=== PATIENT | male | born 1960 | race Caucasian/White ===

== ENCOUNTER → 2024-10-01 | Outpatient (CLI) | payer MEDICARE, SELFPAY ==
--- NOTE | 2024-10-01 14:30 | XR_ITS ---
Examination: CT chest, without intravenous contrast. Sagittal and coronal 2-D reconstructions. Exam date and time: October 01, 2024 1449 hours INDICATIONS: CT chest May 16, 2024 2 mm pulmonary nodule posterior left lung, diagnosis esophageal carcinoma CTDI:vol (mGy) 10.7 DLP: (mGycm) 130 Technique: Multiple 3.0 mm axial sections of the chest to been obtained. Bone and lung density settings are obtained. Sagittal and coronal 2-D reconstructions have been obtained. Low dose protocols were performed. One or more of the following dose reduction techniques were used; automated exposure control, adjustment of the mA and/or KV according to patient size, use of iterative reconstruction technique. Findings: Partial visualization axillary stents Thoracic aortic calcification no aneurysmal dilatation Pulmonary artery segments are not enlarged Stable 2 mm pulmonary nodule posterior left lung No new pulmonary nodules No pneumonia or pulmonary edema No visualized liver or splenic lesion Absent gallbladder Kidneys partially visualized, atrophic right kidney no hydronephrosis No pancreatic mass IMPRESSION: Stable 2 mm pulmonary nodule posterior left lung
== END | disposition home or self-care (01) ==
PROVIDERS: PCP Family Medicine; Referring Provider Registered Nurse; Visit Provider Registered Nurse
DX: R91.1 Solitary pulmonary nodule (principal)
CPT/HCPCS: 71250

== ENCOUNTER → 2024-10-23 | Outpatient (CLI) | payer MEDICARE, SELFPAY ==
[2024-10-23 10:35] LABS: Anion Gap 7 (7-16); BUN/Creatinine Ratio 22 Ratio (12-20); Blood Urea Nitrogen 24 mg/dL (9-23); Calcium 9.4 mg/dL (8.3-10.6); Carbon Dioxide 26.5 mMol/L (20.0-31.0); Cardiac Risk Estimate 4.3 RATIO (4.0-6.7); Chloride 106 mMol/L (98-107); Cholesterol 146 mg/dL (132-200); Creatinine (Component) 1.1 mg/dL (0.6-1.3); Glucose 106 mg/dL (74-106); HDL Cholesterol 34 mg/dL (40-60); LDL Cholesterol,Calculated 92 mg/dL (0-130); Osmolality,Calculated 281 (275-295); Potassium 4.5 mMol/L (3.4-5.1); Sodium 139 mMol/L (136-145); Triglycerides 98 mg/dL (30-150); eGFR > 60 See Note
== END | disposition home or self-care (01) ==
LOC: COPL 09:13
PROVIDERS: PCP Registered Nurse; Referring Provider Internal Medicine Cardiovascular Disease; Visit Provider Internal Medicine Cardiovascular Disease
DX: I25.118 Atherosclerotic heart disease of native coronary artery with other forms of angina pectoris (principal); N18.31 Chronic kidney disease, stage 3a
CPT/HCPCS: 36415; 80048; 80061

== ENCOUNTER → 2024-10-30 | Outpatient (CLI) | payer MEDICARE, SELFPAY ==
--- NOTE | 2024-10-30 09:52 | XR_ITS ---
Examination: Abdomen AP single view Technique: AP portable supine abdomen, single view Exam date and time: October 30, 2024, 0858 hrs. Indications: Left-sided flank pain beginning one week ago. Findings: Surgical clips upper right abdomen. No renal or ureteral calculi. Moderate stool throughout the colon Impression: No renal or ureteral calculi.
== END | disposition home or self-care (01) ==
LOC: CDIM 09:41
PROVIDERS: PCP Family Medicine; Referring Provider Family Medicine; Visit Provider Family Medicine
DX: R19.7 Diarrhea, unspecified (principal)
CPT/HCPCS: 74018

== ENCOUNTER → 2024-11-03 | Outpatient (CLI) | payer MEDICARE, SELFPAY ==
--- NOTE | 2024-11-03 13:01 | XR_ITS ---
Examination: Abdomen AP single view Technique: AP portable supine abdomen, single view Exam date and time: November 03, 2024 at 1344 hours INDICATIONS: Abdominal pain beginning one week ago. FINDINGS: Mild small bowel ileus Moderate air and stool throughout the colon No obstruction No free air Surgical clips upper right abdomen IMPRESSION: Mild small bowel ileus
== END | disposition home or self-care (01) ==
PROVIDERS: PCP Registered Nurse; Referring Provider Registered Nurse; Visit Provider Registered Nurse
DX: K56.7 Ileus, unspecified (principal)
CPT/HCPCS: 74018

== ENCOUNTER 2024-11-04 13:04 | Emergency (ER) | payer MEDICARE, SELFPAY ==
[2024-11-04 13:33] VITALS: BP 156/70; PULSE 75; RESP 16; TEMP 37; O2SAT 97; BMI 20.8
--- NOTE | 2024-11-04 13:35 | PD.EDRME ---
Rapid Medical Screening Exam RME Arrival date/time: 11/04/24 13:04 63 yo m present to ED for c/o of constipation/abd pain for 2 weeks I have greeted and performed a focused initial assessment of this patient. A comprehensive ED assessment and evaluation of the patient, analysis of all test results, and completion of the medical decision making process will be conducted by additional ED providers. Chief Complaint: General Adult/Misc Complain Time Seen by Provider: 11/04/24 13:24 Vital signs: Vital Signs Temperature 98.6 F 11/04/24 13:33 Pulse Rate 75 11/04/24 13:33 Respiratory Rate 16 11/04/24 13:33 Blood Pressure 156/70 H 11/04/24 13:33 Pulse Oximetry (%) 97 11/04/24 13:33 Oxygen Delivery Method Room Air 11/04/24 13:33
--- NOTE | 2024-11-04 13:38 | XR_ITS ---
Examination: CT abdomen with intravenous contrast CT pelvis with intravenous contrast 2-D coronal reconstructions 2-D sagittal reconstructions Date and time of exam:November 04, 20244 hrs. Indications: Abdominal pain constipation beginning 3 days ago. Comparison: July 17, 2023. CTDI: vol (mGy) 6.05 DLP: (mGycm) 334 Technique: Multiple axial sections of the abdomen and pelvis have been obtained. 64 slice high-resolution scanner used. 3 mm axial sections have been obtained, post intravenous injection 30 cc [id number] 2-D sagittal, coronal reconstructions obtained. Low dose protocols were performed. One or more of the following dose reduction techniques were used; automated exposure control, adjustment of the mA and/or KV according to patient size, use of iterative reconstruction technique. Findings: No focal liver or splenic lesions Absent gallbladder No extrahepatic biliary tract dilatation No pancreatic or adrenal mass Celiac superior mesenteric artery stents Opacification of the stents is difficult to assess given the low contrast administered Abdominal aortic calcification no aneurysmal dilatation Normal appendix Atrophic right kidney, right renal artery stent which appears opacified Wall thickening, mild involving the left pelvicalyceal system and proximal left ureter suspicious for urinary tract infection No hydronephrosis No bowel obstruction Colonic diverticulosis Right lateral chest wall abdominal wall stent, likely axillary stent which is opacified and extends to the common femoral arteries bilaterally Contracted urinary bladder No bowel obstruction Significant osteopenia Moderate disc narrowing L5-S1 Impression: Absent gallbladder No CT findings of bowel obstruction appendicitis or diverticulitis Suspicious for left urinary tract infection
[2024-11-04 14:10] LABS: Basophils % (Auto) 0 % (0-2.5); Eosinophils # (Auto) 0.2 Thou/mm3 (0.0-0.5); Eosinophils % (Auto) 2 % (0-10); Hematocrit 41.6 % (41.0-53.0); Hemoglobin 14.4 g/dL (13.5-16.0); Immature Granulocytes % (Auto) 0 % (0-0); Immature Granulocytes Auto 0.02 Thou/mm3 (0.00-0.00); Lymphocytes # (Auto) 2.5 Thou/mm3 (1.0-4.8); Lymphocytes % (Auto) 27 % (10-50); Mean Corpuscular HGB Conc 34.6 g/dl (31.0-37.0); Mean Corpuscular Hemoglobin 28.5 pg (25.0-35.0); Mean Corpuscular Volume 82 fL (80-100); Monocytes # (Auto) 0.8 Thou/mm3 (0.0-0.8); Monocytes % (Auto) 9 % (0-12); Neutrophils # (Auto) 5.7 Thou/mm3 (1.8-7.7); Neutrophils % (Auto) 61 % (37-80); Nucleated Red Blood Cell % 0 /100 WBC (0); Platelet Count 179 Thou/mm3 (140-440); RDW Standard Deviation 42.8 fL (35.1-43.9); Red Blood Count 5.05 Miln/mm3 (4.50-5.90); White Blood Count 9.2 Thou/mm3 (3.8-10.6)
[2024-11-04 14:32] LABS: Alanine Aminotransferase 18 U/L (10-49); Albumin, Serum 4.6 gm/dL (3.4-4.8); Albumin/Globulin Ratio 1.8 (1.2-2.2); Alkaline Phosphatase 97 U/L (46-116); Anion Gap 11 (7-16); Aspartate Amino Transferase 19 U/L (0-34); BUN/Creatinine Ratio 16 Ratio (12-20); Bilirubin,Total 0.7 mg/dL (0.3-1.2); Blood Urea Nitrogen 24 mg/dL (9-23); Calcium 9.3 mg/dL (8.3-10.6); Calcium (Corrected) 9.3 mg/dL (8.5-10.1); Carbon Dioxide 25.2 mMol/L (20.0-31.0); Chloride 99 mMol/L (98-107); Creatinine (Component) 1.5 mg/dL (0.6-1.3); Estimated Creatinine Clearance 45.8 mL/min (>60); Globulin 2.6 gm/dL (2.3-3.5); Glucose 120 mg/dL (74-106); Lipase 46 U/L (12-53); Magnesium 2.3 mg/dL (1.6-2.6); Osmolality,Calculated 275 (275-295); Potassium 4.3 mMol/L (3.4-5.1); Sodium 135 mMol/L (136-145); Total Protein 7.2 gm/dL (5.7-8.2); eGFR 51 See Note
[2024-11-04] MEDS: SODIUM CHLORIDE 0.9% 1000 ML 1,000 ML 999 ML IV (20:36)
--- NOTE | 2024-11-04 21:42 | EDNOTE_ITS ---
ED General RME/HPI General Chief complaint: General Adult/Misc Complain Stated complaint: MILD BOWEL ILEUS , DEHYDRATED, MOD STOOL IN COLON Time Seen by Provider: 11/04/24 13:24 Arrival date/time: 11/04/24 13:04 RME / HPI RME / HPI narrative: 11/04/24 13:04 63 yo m present to ED for c/o of constipation/abd pain for 2 weeks I have greeted and performed a focused initial assessment of this patient. A comprehensive ED assessment and evaluation of the patient, analysis of all test results, and completion of the medical decision making process will be conducted by additional ED providers. -------- Dr. Hartman?s Main ED Evaluation: 63yo male with a history of colon resection, CKD, HTN, fundoplication presents to the ED for a chief complaint of constipation. Patient states he had an outpatient abdominal x-ray on , which came back unremarkable. He started having diffuse abdominal pain over the last 2-3 days and had a repeat x-ray yesterday, which showed a mild ileus. He states he was concerned due to using stool softeners and enemas and continuing to not have any formed bowel movements, so he came in for evaluation. He states he has been having watery episodes of diarrhea and is passing gas. He denies any N/V, fever, chills or neelima other associated symptoms. Related Data Home Medications ?Medication ?Instructions ?Recorded ?Confirmed ticagrelor 90 mg tablet (Brilinta) 90 mg PO BID 05/10/22 tamsulosin 0.4 mg capsule 0.4 mg PO QHS 07/21/2105/10 Allergies Allergy/AdvReac Type Severity Reaction Status Date / Time meperidine Allergy Mild SEIZURE Verified 11/04/24 13:09 codeine Allergy Unknown SEIZURE Verified 11/04/24 13:09 methocarbamol Allergy Unknown SEIZURE Verified 11/04/24 13:09 midazolam Allergy Seizure Verified 11/04/24 13:09 Review of Systems Review of Systems Systems Reviewed: All systems reviewed, normal except as documented Past Medical History Past Medical History NEUROLOGIC: Positive Neurological Disorders and Seizures CARDIAC: Positive Coronary Artery Disease, Hypercholesterolemia and Hypertension; Negative Cardiac Disorders or Congestive Heart Failure RESPIRATORY: Negative Chronic Obstructive Pulmonary Disease (COPD) or Asthma GASTROINTESTINAL: Positive Gastrointestinal Disorders, Diverticulosis, Ulcer and Gastroesophageal Reflux Disease GENITOURINARY: Positive Genitourinary Disorders and Renal Disease MUSCULOSKELETAL: Positive Musculoskeletal Disorders and Degenerative Disk Disease ENDOCRINE: Negative Endocrine Disorders, Diabetes Mellitus Type 1, Diabetes Mellitus Type 2 or Hypothyroidism HEMATOLOGIC: Negative Blood Disorders, Anemia or Sickle Cell Disease OTHER HISTORY: Negative Blood Transfusions or Anesthesia Reactions Family History FAMILY HISTORY: Positive Family Cardiac Disorders and Family Cancer Surgical History SURGICAL: Positive Cardiac Surgery, Coronary Stent, Angiogram and Abdominal Surgery Social History SMOKING STATUS: Former smoker SUBSTANCE USE: does not use OCCUPATION: Retired sales and business development manager ED Exam Narrative Physical exam: GENERAL APPEARANCE: alert and oriented x 4, well-developed, well-nourished, no acute distress VITALS: All vitals were reviewed and the pulse ox is 97% on room air, which is normal according to my interpretation. HEENT: Normocephalic, atraumatic; pupils equal, round, reactive to light; EOMI; mucous membranes pink, moist; oropharynx clear NECK: Supple LUNGS: CTABL; no wheezes, no rales, no rhonchi HEART: Regular rate, regular rhythm; normal S1, S2; no murmurs ABDOMEN: non distended; normal BS; soft, no tenderness, no guarding, no rebound; no masses, no organomegaly, no hernia BACK: no CVA tenderness EXTREMITIES: atraumatic; no edema NEUROLOGIC: awake; alert and oriented x4; cranial nerves II-XII grossly intact; no focal sensory or motor deficits PSYCHIATRIC: appropriate mood and affect SKIN: warm, dry, normal color; no rashes Course Quality Measures none Orders Category Date Time Status CT Screening NOW Care 11/04/24 13:38 Active IV [Insert IV] STAT Care 11/04/24 13:[address] abdomen pelvis w con Stat Exams 11/04/24 13:38 Completed CBC Stat Lab 11/04/24 13:47 Completed CMP [Comprehensive Metabolic Panel] Stat Lab 11/04/24 13:47 Completed Lipase Stat Lab 11/04/24 13:47 Completed Mag [Magnesium] Stat Lab 11/04/24 13:47 Completed Sodium Chloride 0.9% 1000 ml [Ns] 1,000 ml Med 11/04/24 20:09 Discontinued IV 999 mls/hr Vital Signs Vital signs: Vital Signs Temperature 98.6 F 11/04/24 13:33 Pulse Rate 75 11/04/24 13:33 Respiratory Rate 16 11/04/24 13:33 Blood Pressure 156/70 H 11/04/24 13:33 Pulse Oximetry (%) 97 11/04/24 13:33 Oxygen Delivery Method Room Air 11/04/24 13:33 [facility] Patient data External records reviewed:: [facility] previous records (Per chart review, patient was seen here on 05/21/24 for dehydration.) Clinical information provided by:: patient Social determinants that could affect healthcare access:: none Patient has the following chronic illnesses:: CAD, HTN, HLD How is presenting disease/condition affected by chronic disease/condition?: u neffected by Evaluation data The following diagnostics were reviewed and interpreted by me:: lab results and radiology exam(s) Lab and/or radiology exams considered but not ordered:: none Interpretation Summary: CBC is normal, BUN is 24, Creatinine is 1.5, Glucose is 120, Lipase is normal, according to my interpretation. ------- [facility] Report Signed Patient: MAXINE ORTEGA [facility]. Record#: [id number] Birthdate: 1960 Age/Sex: 63 / M Location: [facility] Attending Dr: Ordering Physician: Quan Fajardo PA-C Date of Service: 11/04/24 Procedure(s): CT abdomen pelvis w con Accession Number(s): [id number] cc: Marty Antuenz MD; Quan Fajardo PA-C; Janey Figueroa MD~ Examination: CT abdomen with intravenous contrast CT pelvis with intravenous contrast 2-D coronal reconstructions 2-D sagittal reconstructions Date and time of exam:November 04, 20242023 hrs. Indications: Abdominal pain constipation beginning 3 days ago. Comparison: July 17, 2023. CTDI: vol (mGy) 6.05 DLP: (mGycm) 334 Technique: Multiple axial sections of the abdomen and pelvis have been obtained. 64 slice high-resolution scanner used. 3 mm axial sections have been obtained, post intravenous injection 30 cc Isovue-300 2-D sagittal, coronal reconstructions obtained. Low dose protocols were performed. One or more of the following dose reduction techniques were used; automated exposure control, adjustment of the mA and/or KV according to patient size, use of iterative reconstruction technique. Findings: No focal liver or splenic lesions Absent gallbladder No extrahepatic biliary tract dilatation No pancreatic or adrenal mass Celiac superior mesenteric artery stents Opacification of the stents is difficult to assess given the low contrast administered Abdominal aortic calcification no aneurysmal dilatation Normal appendix Atrophic right kidney, right renal artery stent which appears opacified Wall thickening, mild involving the left pelvicalyceal system and proximal left ureter suspicious for urinary tract infection No hydronephrosis No bowel obstruction Colonic diverticulosis Right lateral chest wall abdominal wall stent, likely axillary stent which is opacified and extends to the common femoral arteries bilaterally Contracted urinary bladder No bowel obstruction Significant osteopenia Moderate disc narrowing L5-S1 Impression: Absent gallbladder No CT findings of bowel obstruction appendicitis or diverticulitis Suspicious for left urinary tract infection Dictated By: Marty Antunez MD Signed By: <Electronically signed by Marty Antunez MD in [place]> 11/04/242123 Medications Medications considered but not ordered:: none Medication administrations:: Medication Administration History Discontinued Medications Sodium Chloride (Ns) 1,000 mls @ 999 mls/hr IV .Q1H1M ONE Stop: 11/04/24 21:09 Last Admin: 11/04/24 20:36 Dose: 999 mls/hr Documented By: OA see above Consultations Consultation(s) initiated? (list below): No Diagnosis Differential Diagnosis ED Complaint MDM: ileus, constipation, SBO, normal bowel habits Most likely diagnosis given after review of the tests above:: see clinical impression below Admission Indicated Admission indicated?: not indicated Explain why admission is indicated or not indicated:: No criteria for admission. Admission Request Was there a request for admission?: No Disposition Plan Disposition Plan: Discharge Discharge Attestation Discharge Attestation: The patient and all family members were given an opportunity to ask questions and understood the discharge instructions. Discharge instructions specifically effects, indications for sooner follow up or return to the emergency department, and the expected course of current diagnosis. Patient condition: Stable Medical Decision Making MDM Narrative MDM Narrative: Scribe Attestation: 11/04/24 Ashleigh Coon am scribing for and in the presence of Dr. Hartman. Differential Diagnosis Differential Diagnosis: ileus, constipation, SBO, normal bowel habits Lab Data 11/04/24 13:47 11/04/24 13:47 Labs: Lab Results 11/04/24 Range/Units 13:47 WBC 9.2 (3.8-10.6) Thou/mm3 RBC 5.05 (4.50-5.90) Miln/mm3 Hgb 14.4 (13.5-16.0) g/dL Hct 41.6 (41.0-53.0) % MCV 82 (80-100) fL MCH 28.5 (25.0-35.0) pg MCHC 34.6 (31.0-37.0) g/dl RDW Std Deviation 42.8 (35.1-43.9) fL Plt Count 179 (140-440) Thou/mm3 Neut % (Auto) 61 (37-80) % Lymph % (Auto) 27 (10-50) % [place]ette % (Auto) 9 (0-12) % Eos % (Auto) 2 (0-10) % Baso % (Auto) 0 (0-2.5) % Neut # (Auto) 5.7 (1.8-7.7) Thou/mm3 Lymph # (Auto) 2.5 (1.0-4.8) Thou/mm3 Labette # (Auto) 0.8 (0.0-0.8) Thou/mm3 Eos # (Auto) 0.2 (0.0-0.5) Thou/mm3 Baso # (Auto) 0.0 (0.0-0.2) Thou/mm3 Immature Gran # (Auto) 0.02 H (0.00-0.00) Thou/mm3 Absolute Nucleated RBC 0.00 (0.00-0.00) Thou/mm3 Immature Gran % 0 (0-0) % Nucleated RBC % 0 (0) /100 WBC Sodium 135 L (136-145) mMol/L Potassium 4.3 (3.4-5.1) mMol/L Chloride 99 (98-107) mMol/L Carbon Dioxide 25.2 (20.0-31.0) mMol/L Anion Gap 11 (7-16) BUN 24 H (9-23) mg/dL Creatinine 1.5 H (0.6-1.3) mg/dL Estim Creat Clear Calc 45.8 L (>60) mL/min eGFR 51 L (60 - ) See Note BUN/Creatinine Ratio 16 (12-20) Ratio Glucose 120 H (74-106) mg/dL Calculated Osmolality 275 (275-295) Calcium 9.3 (8.3-10.6) mg/dL Corrected Calcium 9.3 (8.5-10.1) mg/dL Magnesium 2.3 (1.6-2.6) mg/dL Total Bilirubin 0.7 (0.3-1.2) mg/dL AST 19 (0-34) U/L ALT 18 (10-49) U/L Alkaline Phosphatase 97 (46-116) U/L Total Protein 7.2 (5.7-8.2) gm/dL Albumin 4.6 (3.4-4.8) gm/dL Globulin 2.6 (2.3-3.5) gm/dL Albumin/Globulin Ratio 1.8 (1.2-2.2) Lipase 46 (12-53) U/L Discharge Plan Plan Patient Disposition: HOME (Self Care) Disposition Comment: Stable for discharge home Patient condition on transfer: Stable Prescriptions/Referrals Prescriptions/Med Rec: No Action tamsulosin 0.4 mg capsule 0.4 mg PO QHS Brilinta 90 mg tablet 90 mg PO BID Patient Comments: TAKE 1 TABLET BY MOUTH TWICE A DAY Referrals: Janey Figueroa MD [Primary Care Provider] - In 1 week Problem List Clinical Impression: Diarrhea, Dehydration Patient/Caregiver Discharge Instructions Discharge Activity: activity as tolerated Education Materials: Treating Diarrhea, Self-Care for Vomiting and Diarrhea, Dehydration Additional Instructions: Please return to the emergency department if you have any worsening or any further medical problems. Otherwise you should follow-up with your primary care doctor within the next several days. Print Language: Dominican Stand Alone Forms: Jennifer Award Info., Patient Portal Info Letter
== END 2024-11-04 22:15 | disposition home or self-care (01) ==
PROVIDERS: Physician Assistant; Emergency Provider Emergency Medicine; PCP Family Medicine
DX: R19.7 Diarrhea, unspecified (principal); E86.0 Dehydration
CPT/HCPCS: 36415; 74177; 80053; 83690; 83735; 85025; 96360; 99285; A4649; J7030; Q9967

== ENCOUNTER → 2024-11-11 | Outpatient (CLI) | payer MEDICARE, SELFPAY ==
[2024-11-11 18:50] LABS: Blood Urea Nitrogen 21 mg/dL (9-23); Creatinine (Component) 1.3 mg/dL (0.6-1.3); eGFR > 60 See Note
== END | disposition home or self-care (01) ==
LOC: COPL 17:03
PROVIDERS: PCP Family Medicine; Referring Provider Nurse Practitioner Family; Visit Provider Nurse Practitioner Family
DX: I70.213 Atherosclerosis of native arteries of extremities with intermittent claudication, bilateral legs (principal)
CPT/HCPCS: 36415; 82565; 84520

== ENCOUNTER → 2024-11-14 | Outpatient (CLI) | payer MEDICARE, SELFPAY ==
--- NOTE | 2024-11-14 08:29 | XR_ITS ---
Examination: CTA abdominal aorta iliofemoral runoff. 2-D sagittal coronal reconstructions. 3-D reconstructions, vascular Exam date and time: November 14, 2024 0834 hours INDICATIONS: History arterial sclerotic disease lower extremities, right leg pain and coldness one month, history graft placement right brachial artery heart stent placement 6 years ago Technique: Multiple CTA images of the abdominal aorta iliofemoral runoff arterial vessels, 2.0 mm slice thickness, post intravenous administration 130 cc Isovue-370 2-D sagittal coronal reconstructions. 3-D reconstructions, vascular 3-D postprocessing, including vascular maximum intensity projection images, 3-D volume rendering Low dose protocols were performed. One or more of the following dose reduction techniques were used; automated exposure control, adjustment of the mA and/or KV according to patient size, use of iterative reconstruction technique. Findings: 5 mm pulmonary nodule left lower lobe No focal liver or splenic lesions Absent gallbladder No pancreatic mass Atrophic right kidney no hydronephrosis No bowel obstruction Normal appendix No diverticulitis No significant opacification stent lateral right abdomen Heavy calcification abdominal aorta Severe stenosis minimal contrast opacification in the proximal celiac standard axial image 64 Severe stenosis proximal superior mesenteric artery in the stent axial image 78 Opacified right renal artery stent No abdominal aortic aneurysm dilatation 50% stenosis distal abdominal aorta axial image 114 Diffusely attenuated common iliac arteries and external iliac arteries No significant opacification of the common femoral stents bilaterally 90% plus stenosis right common femoral artery Occlusion proximal to mid right superficial femoral artery over a distance of 6 cm with reconstitution from profunda artery branches Right popliteal artery fills High-grade stenoses mid and distal right anterior tibial artery Severely attenuated main continuation trunk. 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
== END | disposition home or self-care (01) ==
LOC: SCAT 07:36
PROVIDERS: Referring Provider Student in an Organized Health Care Education/Training Program; Visit Provider Student in an Organized Health Care Education/Training Program
DX: I70.201 Unspecified atherosclerosis of native arteries of extremities, right leg (principal); I70.208 Unspecified atherosclerosis of native arteries of extremities, other extremity; I77.1 Stricture of artery
CPT/HCPCS: 75635; A4649; Q9967

== ENCOUNTER → 2024-11-28 | Outpatient (CLI) | payer MEDICARE, SELFPAY ==
[2024-11-28 15:09] LABS: Basophils % (Auto) 0 % (0-2.5); Eosinophils # (Auto) 0.1 Thou/mm3 (0.0-0.5); Eosinophils % (Auto) 2 % (0-10); Hematocrit 37.5 % (41.0-53.0); Hemoglobin 12.3 g/dL (13.5-16.0); Immature Granulocytes % (Auto) 1 % (0-0); Immature Granulocytes Auto 0.03 Thou/mm3 (0.00-0.00); Lymphocytes # (Auto) 1.6 Thou/mm3 (1.0-4.8); Lymphocytes % (Auto) 25 % (10-50); Mean Corpuscular HGB Conc 32.8 g/dl (31.0-37.0); Mean Corpuscular Volume 88 fL (80-100); Monocytes # (Auto) 0.5 Thou/mm3 (0.0-0.8); Monocytes % (Auto) 8 % (0-12); Neutrophils # (Auto) 4.3 Thou/mm3 (1.8-7.7); Neutrophils % (Auto) 65 % (37-80); Nucleated Red Blood Cell % 0 /100 WBC (0); Platelet Count 166 Thou/mm3 (140-440); RDW Standard Deviation 51.4 fL (35.1-43.9); Red Blood Count 4.24 Miln/mm3 (4.50-5.90); White Blood Count 6.6 Thou/mm3 (3.8-10.6)
[2024-11-28 15:25] LABS: Alanine Aminotransferase 14 U/L (10-49); Albumin/Globulin Ratio 1.9 (1.2-2.2); Alkaline Phosphatase 77 U/L (46-116); Anion Gap 7 (7-16); Aspartate Amino Transferase 15 U/L (0-34); BUN/Creatinine Ratio 19 Ratio (12-20); Bilirubin,Total 0.7 mg/dL (0.3-1.2); Blood Urea Nitrogen 25 mg/dL (9-23); Calcium 9.1 mg/dL (8.3-10.6); Calcium (Corrected) 9.1 mg/dL (8.5-10.1); Carbon Dioxide 28.9 mMol/L (20.0-31.0); Chloride 106 mMol/L (98-107); Creatinine (Component) 1.3 mg/dL (0.6-1.3); Globulin 2.1 gm/dL (2.3-3.5); Glucose 112 mg/dL (74-106); Osmolality,Calculated 288 (275-295); Partial Thromboplastin Time 27.1 Seconds (22.0-36.0); Potassium 4.2 mMol/L (3.4-5.1); Prothrombin Time 11.2 Seconds (9.0-12.2); Sodium 142 mMol/L (136-145); Total Protein 6.1 gm/dL (5.7-8.2); eGFR > 60 See Note
== END | disposition home or self-care (01) ==
LOC: COPL 14:17
PROVIDERS: PCP Family Medicine; Referring Provider Family Medicine; Visit Provider Family Medicine
DX: I12.9 Hypertensive chronic kidney disease with stage 1 through stage 4 chronic kidney disease, or unspecified chronic kidney disease (principal); N18.31 Chronic kidney disease, stage 3a
CPT/HCPCS: 36415; 80053; 85025; 85610; 85730

== ENCOUNTER 2025-01-23 21:54 | Inpatient (IN) | payer MEDICARE, SELFPAY ==
[2025-01-23 21:55] VITALS: BMI 22.4
[2025-01-23 21:56] VITALS: BP 163/61; PULSE 102; RESP 18; TEMP 37.1; O2SAT 98
[2025-01-23 22:42] VITALS: BP 171/67; PULSE 110; PULSE 111; RESP 16; RESP 18; TEMP 37.7; O2SAT 98; O2SAT 99
--- NOTE | 2025-01-23 22:57 | EDNOTE_ITS ---
ED Abdominal Pain RME/HPI General Chief Complaint: Abdominal Pain Stated complaint: ABD PAIN Time seen by provider: 01/23/25 22:58 Arrival date/time: 01/23/25 21:54 RME / HPI RME / HPI narrative: This section includes all my notes and documentations, including HPI, PE, and ED course. Umer Licona MD HPI: 64 y/o male with Hx of multiple abdominal surgeries, Coronary Artery Disease, Hypercholesterolemia, Hypertension, Diverticulosis, Ulcer, Gastroesophageal Reflux Disease, and Renal Disease presents to ED c/o severe abdominal pain and subjective fever for the past few days. Past surgeries include partial colectomy due to severe colitis about 3 years ago at [facility]. Prior to that, he had fundoplication and cholecystectomy. No hematemesis or coffee-ground emesis. No other complaints. ROS: All negative except as documented in HPI. Physical Exam: General: Alert and oriented. No acute distress when remaining still. Eyes: Conjunctivae and lids clear. ENT: No nasal congestion. Neck: Supple. Heart: Regular rhythm, tachycardic. Lungs: No respiratory distress. Good air movement. No rhonchi, wheezing, rales. Abdomen: Soft with diffuse tenderness, difficult to localize. Decreased bowel sounds. No obvious distension. No obvious rebound or guarding. Back: No CVA tenderness. Skin: Warm and dry. Neuro: Alert and oriented X 3. I reviewed EMS notes. I reviewed all diagnostic test results: My interpretation of the EKG is: Sinus tachycardia (106 bpm) with right BBB and nonspecific ST-T changes. My interpretation of the chest x-ray is free air. My review of the Chest/Abdomen/Pelvis CT report is free air in peritoneum due to bowel perforation and diverticulitis and colitis. Blood tests and urine tests remarkable for WBC 11.8. Covid/Influenza/Strep/RSV negative. At this point, diagnoses include: Bowel Perforation, Diverticulitis, Colitis. Treatment here included: Ofirmev, Rocephin, IV fluid, Toradol, Zofran, and Zosyn. Patient remained stable. I discussed the case with our general surgeon, Dr. Martinez, about the presentation and exam and diagnostics and treatments here. And need of further care in the hospital. Recommended admission for surgery. I discussed the case with our hospitalist. About the presentation and exam and diagnostics and treatments here. And need of further care in the hospital. Will accept the patient. Umer Licona MD Related Data Home Medications ?Medication ?Instructions ?Recorded ?Confirmed ticagrelor 90 mg tablet (Brilinta) 90 mg PO BID 05/10/22 tamsulosin 0.4 mg capsule 0.4 mg PO QHS 07/21/2105/10 Allergies Allergy/AdvReac Type Severity Reaction Status Date / Time meperidine Allergy Mild SEIZURE Verified 01/23/25 22:41 codeine Allergy Unknown SEIZURE Verified 01/23/25 22:41 methocarbamol Allergy Unknown SEIZURE Verified 01/23/25 22:41 avocado Allergy Verified 01/23/25 22:41 banana Allergy Verified 01/23/25 22:41 carrot Allergy Verified 01/23/25 22:41 midazolam Allergy Seizure Verified 01/23/25 22:41 morphine Allergy Verified 01/23/25 22:41 watermelon Allergy Verified 01/23/25 22:41 Review of Systems Review of Systems Systems Reviewed: All systems reviewed, normal except as documented Past Medical History Past Medical History NEUROLOGIC: Positive Neurological Disorders and Seizures CARDIAC: Positive Coronary Artery Disease, Hypercholesterolemia and Hypertension GASTROINTESTINAL: Positive Gastrointestinal Disorders, Diverticulosis, Ulcer and Gastroesophageal Reflux Disease GENITOURINARY: Positive Genitourinary Disorders and Renal Disease MUSCULOSKELETAL: Positive Musculoskeletal Disorders and Degenerative Disk Disease Family History FAMILY HISTORY: Positive Family Cardiac Disorders and Family Cancer Surgical History SURGICAL: Positive Cardiac Surgery, Coronary Stent, Angiogram and Abdominal Surgery ED Exam Narrative Physical exam: Refer to [facility] Course Course Course Narrative: CXR is ordered for determining the etiology of shortness of breath. Quality Measures none Orders Category Date Time Status Bedside COVID-19 Antigen Test NOW Care 01/23/25 22:58 Active Bedside Influenza A&B Antigen Test NOW Care 01/23/25 22:58 Completed COVID-19 Screening Questionnaire NOW Care 01/24/25 02:[address] Screening NOW Care 01/23/25 23:02 Active Decision to Admit X1 Care 01/24/25 02:52 Completed EKG (ED ONLY) *Do not use* NOW Care 01/23/25 23:02 Completed NPO NOW Care 01/24/25 02:52 Active Occult Blood,Stool (Nursing) NOW Care 01/23/25 23:34 Active Saline [Insert IV] NOW Care 01/23/25 22:58 Active Straight [In and Out Catheter] X1 Care 01/23/25 22:58 Active Consult to General Surgery Stat Cons 01/24/25 02:47 Ordered Diet NPO (NOW) Diet 01/24/25 02:[address] chest abdomen pelvis w Stat Exams 01/23/25 23:02 Taken EKG (ED Only) Stat Exams 01/23/25 23:02 Draft XR chest 1V portable Stat Exams 01/23/25 23:02 Completed Amylase Stat Lab 01/23/25 23:05 Completed BNP [B-Type Natriuretic Peptide] Stat Lab 01/23/25 23:05 Completed Bilirubin,Direct Stat Lab 01/23/25 23:05 Completed Blood Culture (Lab) Stat Lab 01/23/25 23:15 Received CBC Stat Lab 01/23/25 23:05 Completed CMP [Comprehensive Metabolic Panel] Stat Lab 01/23/25 23:05 Completed CRP [C-Reactive Protein] Stat Lab 01/23/25 23:05 Completed ESR [Sed Rate (ESR)] Stat Lab 01/23/25 23:05 Completed Free T4 (Free Thyroxine) Stat Lab 01/23/25 23:05 Completed Lactate (Lactic Acid) Stat Lab 01/23/25 23:05 Completed Lipase Stat Lab 01/23/25 23:05 Completed Magnesium Stat Lab 01/23/25 23:05 Completed Occult Blood, Stool (LAB) Urgent Lab 01/24/25 01:10 Completed PT [Prothrombin Time with INR] Stat Lab 01/23/25 23:05 Completed PTT [Partial Thromboplastin Time] Stat Lab 01/23/25 23:05 Completed Procalcitonin Stat Lab 01/23/25 23:05 Completed RSV [Respiratory Syncytial Virus Ag] Stat Lab 01/24/25 00:22 Completed Strep A Rapid Stat Lab 01/24/25 00:22 Completed TSH [Thyroid Stimulating Hormone] Stat Lab 01/23/25 23:05 Completed Troponin I Stat Lab 01/23/25 23:05 Completed UA, C/S IF [Urinalysis, C/S if Indicated] Stat Lab 01/24/25 02:10 Completed VBG [Venous Blood Gas] Stat Lab 01/23/25 23:05 Completed Acetaminophen Ivpb [Ofirmev Inj] Med 01/23/25 22:59 Discontinued 1,000 mg in 100 ml IV X1 Ketorolac Inj [Toradol Inj] Med 01/23/25 22:59 Discontinued 30 mg IVP X1 ONE Ondansetron Inj [Zofran Inj] Med 01/23/25 22:59 Discontinued 4 mg IVP X1 ONE Piper/Tazo 3.375 gm Premix [Zosyn] Med 01/24/25 02:41 Discontinued 3.375 gm in 50 ml IV X1 Sodium Chloride 0.9% 1000 ml [Ns] 1,000 ml Med 01/23/25 22:59 Discontinued IV 999 mls/hr cefTRIAXone/D5w 1gm IV premix [Rocephin/D5w 1gm IV Med 01/23/25 22:59 Discontinued premix] 1 g in 50 ml IV X1 Vital Signs Vital signs: Vital Signs Temperature 98.8 F 01/23/25 21:56 Pulse Rate 102 H 01/23/25 21:56 Respiratory Rate 18 01/23/25 21:56 Blood Pressure 163/61 H 01/23/25 21:56 Pulse Oximetry (%) 98 01/23/25 21:56 Oxygen Delivery Method Room Air 01/23/25 21:56 Procedures -ED Stool Hemoccult Procedural Steps Taken: stool placed in appropriate test area, developer placed on stool and control areas and controls appropriately positive and negative Hemoccult result: negative Abdominal Pain MDM MDM Narrative MDM Narrative:: Scribe Attestation: Lyric Bobo, am scribing for and in the presence of Dr. Licona. Provider Notation: Although this document has been carefully reviewed, there may still be some phonetic and other typographical errors.? These errors are purely grammatical due to imperfections in the software program and should not be construed in any way to? compromise the substance of the patient's medical care during this visit. 64 y/o male with Hx of multiple abdominal surgeries, Coronary Artery Disease, Hypercholesterolemia, Hypertension, Diverticulosis, Ulcer, Gastroesophageal Reflux Disease, and Renal Disease presents to ED c/o severe abdominal pain that radiates up to his shoulders and fever x 3 hours and black, tarry stool x 4 days. Patient no longer has a gall bladder, but has an appendix. Denies any cough or vomiting. He is allergic to Morphine, Codeine, and Dilaudid. No other complaints. Patient data External records reviewed:: [facility] previous records (Reviewed prior ED records from 11/04/24. Patient was seen for Dehydration.) and EMS form Clinical information provided by:: patient and EMS Social determinants that could affect healthcare access:: none Patient has the following chronic illnesses:: Seizures, Coronary Artery Disease, Hypercholesterolemia, Hypertension, Diverticulosis, Ulcer, Gastroesophageal Reflux Disease, Renal Disease, Degenerative Disk Disease How is presenting disease/condition affected by chronic disease/condition?: exacerbated by Evaluation data The following diagnostics were reviewed and interpreted by me:: EKG tracing(s) (My interpretation of the EKG is: Sinus tachycardia (106 bpm) with right BBB and nonspecific ST-T changes. Umer Licona MD) Lab and/or radiology exams considered but not ordered:: None Interpretation Summary: I reviewed all diagnostic test results: My interpretation of the EKG is: Sinus tachycardia (106 bpm) with right BBB and nonspecific ST-T changes. My interpretation of the chest x-ray is free air. My review of the Chest/Abdomen/Pelvis CT report is free air in peritoneum due to bowel perforation and diverticulitis and colitis. Blood tests and urine tests remarkable for WBC 11.8. Covid/Influenza/Strep/RSV negative. Medications / Prescriptions Medications or Prescriptions considered but not ordered:: None Medication administrations:: Medication Administration History Sodium Chloride (Ns) 1,000 mls @ 75 mls/hr IV .[id number] CINDY Stop: 02/23/25 03:14 Cefepime HCl 2 gm/ Sodium (Chloride) 50 mls @ 100 mls/hr IV Q12HR CINDY Stop: 01/31/25 03:14 Metronidazole (Flagyl 500 Mg Iv) 500 mg in 100 mls @ 200 mls/hr IV Q6HR CINDY Stop: 01/31/25 03:14 Ondansetron HCl (Ondansetron Inj 2 Mg/Ml Inj 2 Ml) 4 mg IVP Q6H PRN; Protocol PRN Reason: NAUSEA OR VOMITING Stop: 02/23/25 03:09 Pantoprazole Sodium (Pantoprazole Inj 40 Mg Vial) 40 mg IVP QDAY CINDY Stop: 02/23/25 08:59 Discontinued Medications Acetaminophen (Ofirmev Inj) 1,000 mg in 100 mls @ 250 mls/hr IV X1 ONE Stop: 01/23/25 23:22 Last Infusion: 01/24/25 00:24 Dose: Infused Documented By: Admin: 01/23/25 23:54 Dose: 250 mls/hr Documented By: AM Ceftriaxone Sodium/Dextrose (Rocephin/D5w 1gm Iv Premix) 1 g in 50 mls @ 100 mls/hr IV X1 ONE Stop: 01/23/25 23:28 Last Infusion: 01/24/25 00:25 Dose: Infused Documented By: Admin: 01/23/25 23:55 Dose: 100 mls/hr Documented By: AM Sodium Chloride (Ns) 1,000 mls @ 999 mls/hr IV .Q1H1M ONE Stop: 01/23/25 23:59 Last Infusion: 01/24/25 02:44 Dose: Infused Documented By: Admin: 01/23/25 23:55 Dose: 999 mls/hr Documented By: AM Piperacillin/Tazobactam/Dextrose (Zosyn) 3.375 gm in 50 mls @ 100 mls/hr IV X1 ONE Stop: 01/24/25 03:10 Last Admin: 01/24/25 03:07 Dose: 100 mls/hr Documented By: AM Ketorolac Tromethamine (Ketorolac Inj 30 Mg/Ml Vial) 30 mg IVP X1 ONE Stop: 01/23/25 23:00 Last Admin: 01/24/25 03:06 Dose: Not Given Documented By: AM Non-Admin Reason: Patient Refused Labetalol HCl (Labetalol Inj 5 Mg/Ml Vial 20 Ml) 10 mg IVP X1 ONE Stop: 01/24/25 03:33 Ondansetron HCl (Ondansetron Inj 2 Mg/Ml Inj 2 Ml) 4 mg IVP X1 ONE; Protocol Stop: 01/23/25 23:00 Last Admin: 01/24/25 03:11 Dose: Not Given Documented By: AM Non-Admin Reason: Patient Refused From me, patient received Ofirmev, Rocephin, IV fluid, Toradol, Zofran, and Zosyn. Consultations Consultation(s) initiated? (list below): Yes Consultation #1 (Physician, Specialty, Details): I discussed the case with our general surgeon, Dr. Martinez, about the presentation and exam and diagnostics and treatments here. And need of further care in the hospital. Recommended admission for surgery. Time: 02:47 Diagnosis Differential diagnosis abdominal pain: abdominal pain, acute appendicitis, calculus of kidney, constipation, diverticulitis, gastroenteritis, pancreatitis, small bowel obstruction and other (Bowel perforation, colitis) Most likely diagnosis given after review of the tests above:: Bowel Perforation, Diverticulitis, Colitis Admission Indicated Admission indicated?: indicated Explain why admission is indicated or not indicated:: Bowel perforation Admission Request Was there a request for admission?: Yes Admission Attestation Admission request attestation: Discussed case with Hospitalist service regarding admission. Discussed patients ED course, exam findings, labs, and radiology results. The Hospitalist [agrees] to accept the patient for admission. Disposition Plan Disposition Plan: Admit Critical Care Time Critical Care Time Critical Care Time: Yes Total Critical Care Time (min.): 42 Attestation: Due to a high probability of clinically significant, life threatening deterioration, the patient required my highest level of preparedness to intervene emergently and I personally spent this critical care time directly and personally managing the patient. This critical care time included obtaining a history; examining the patient; ordering and review of studies; arranging urgent treatment with development of a management plan; evaluation of patient's response to treatment; frequent reassessment; and discussions with family and other providers. It was exclusive of separately billable procedures and treating other patients and teaching time. Umer Licona MD Discharge Plan Plan Patient Disposition: Admit Acute Care w/in Hospital Problem List Clinical Impression: Bowel perforation, Diverticulitis, Colitis
--- NOTE | 2025-01-23 23:02 | XR_ITS ---
Examination: CT chest with intravenous contrast CT abdomen with intravenous contrast CT pelvis with intravenous contrast 2-D coronal and sagittal reconstructions Time of exam: January 24, 20115, 0122 hours INDICATIONS: Chest pain and shortness of breath abdominal pain today CTDI: vol (mGy) : 7 DLP: (mGycm): 527 Technique: Multiple axial images of the chest, abdomen and pelvis with intravenous contrast, 3.0 mm slice thickness. Images obtained post intravenous injection Isovue 50 cc Isovue 300 . 2-D sagittal and coronal reconstructions. Low dose protocols were performed. One or more of the following dose reduction techniques were used; automated exposure control, adjustment of the mA and/or KV according to patient size, use of iterative reconstruction technique. Findings: No thoracic aortic aneurysmal dilatation No pulmonary artery filling defects Heavy calcification left anterior descending coronary artery No pneumonia or pulmonary edema Pneumoperitoneum No visualized liver splenic lesion Absent gallbladder No pancreatic or adrenal mass Atrophic right kidney, no hydronephrosis Mildly fluid distended small bowel loops Normal appendix Colonic diverticulosis There is thickening of the descending colon near the junction with the splenic fracture, axial image 167 Suspicious for mild sigmoid diverticulitis Urinary bladder intact No significant prostatomegaly Patent femoral to femoral bypass graft and right axillary bypass graft IMPRESSION: No pneumonia or pulmonary edema Pneumoperitoneum, clinical correlation is advised and recommended surgical consultation Focal thickening of the descending colon near the junction with the splenic fracture, recommend colonoscopy follow-up to exclude early malignant neoplasm of the sigmoid colon Multiple fluid distended small bowel loops, clinical correlation advised, consider ileus, enteritis or early small bowel obstruction Suspicious for mild acute sigmoid diverticulitis
--- NOTE | 2025-01-23 23:02 | EKG_ITS ---
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
--- NOTE | 2025-01-23 23:02 | XR_ITS ---
Examination: AP chest single view TECHNIQUE: Portable chest single view January 23, 2025 1107 hours INDICATIONS: Shortness of breath today. FINDINGS: Free air versus colon beneath the right hemidiaphragm Normal heart size No pneumonia or pulmonary edema IMPRESSION: Free air versus colon beneath right hemidiaphragm, clinical correlation is advised
[2025-01-23 23:25] LABS: Base Excess, Venous 0 (-3-3); Basophils % (Auto) 0 % (0-2.5); Eosinophils % (Auto) 0 % (0-10); Hematocrit 28.1 % (41.0-53.0); Hemoglobin 9.7 g/dL (13.5-16.0); Immature Granulocytes % (Auto) 0 % (0-0); Immature Granulocytes Auto 0.04 Thou/mm3 (0.00-0.00); Lactate (Lactic Acid) 1.2 mMol/L (0.4-2.0); Lymphocytes # (Auto) 1.1 Thou/mm3 (1.0-4.8); Lymphocytes % (Auto) 9 % (10-50); Mean Corpuscular HGB Conc 34.5 g/dl (31.0-37.0); Mean Corpuscular Hemoglobin 29.5 pg (25.0-35.0); Mean Corpuscular Volume 85 fL (80-100); Monocytes # (Auto) 0.8 Thou/mm3 (0.0-0.8); Monocytes % (Auto) 7 % (0-12); Neutrophils # (Auto) 9.8 Thou/mm3 (1.8-7.7); Neutrophils % (Auto) 83 % (37-80); Nucleated Red Blood Cell % 0 /100 WBC (0); O2 Saturation, Venous 74 % (96-97); PCO2, Venous 36 mmHg (36-56); PO2, Venous 38 mmHg (15-58); Platelet Count 171 Thou/mm3 (140-440); RDW Standard Deviation 43.1 fL (35.1-43.9); Red Blood Count 3.29 Miln/mm3 (4.50-5.90); White Blood Count 11.8 Thou/mm3 (3.8-10.6); pH, Venous 7.43 (7.33-7.66)
[2025-01-23 23:36] LABS: Sed Rate (ESR) 4 mm/hr (0-20)
[2025-01-23 23:46] LABS: Partial Thromboplastin Time 21.8 Seconds (22.0-36.0); Prothrombin Time 11.4 Seconds (9.0-12.2)
[2025-01-23] MEDS: ACETAMINOPHEN IVPB 1,000 MG/100 ML VIAL 250 MG IV (23:54)
[2025-01-23] MEDS: cefTRIAXone/D5w 1gm IV premix 1 G/50 ML BAG IV (23:55)
[2025-01-23] MEDS: SODIUM CHLORIDE 0.9% 1000 ML 1,000 ML 999 ML IV (23:55)
[2025-01-24] VITALS (18 sets, daily range): BP systolic 88–191; BP diastolic 48–70; PULSE 82–108; RESP 16–20; TEMP 37–38.1; O2SAT 96–99; BMI 22.4
[2025-01-24 00:09] LABS: B-Type Natriuretic Peptide < 20 pg/mL (0-100)
[2025-01-24 00:24] LABS: Alanine Aminotransferase 10 U/L (10-49); Albumin, Serum 4.1 gm/dL (3.4-4.8); Albumin/Globulin Ratio 2.2 (1.2-2.2); Alkaline Phosphatase 70 U/L (46-116); Amylase 86 U/L (30-118); Anion Gap 12 (7-16); BUN/Creatinine Ratio 24 Ratio (12-20); Bilirubin,Direct 0.1 mg/dL (0.0-0.3); Bilirubin,Total 0.3 mg/dL (0.3-1.2); Blood Urea Nitrogen 36 mg/dL (9-23); C-Reactive Protein < 0.5 mg/dL (0.0-0.9); Calcium 9.1 mg/dL (8.3-10.6); Calcium (Corrected) 9.1 mg/dL (8.5-10.1); Carbon Dioxide 24.5 mMol/L (20.0-31.0); Chloride 106 mMol/L (98-107); Creatinine (Component) 1.5 mg/dL (0.6-1.3); Estimated Creatinine Clearance 47.2 mL/min (>60); Globulin 1.9 gm/dL (2.3-3.5); Glucose 140 mg/dL (74-106); Lipase 43 U/L (12-53); Osmolality,Calculated 293 (275-295); Potassium 4.3 mMol/L (3.4-5.1); Sodium 142 mMol/L (136-145); eGFR 51 See Note
[2025-01-24 00:44] LABS: Free T4 (Free Thyroxine) 1.03 ng/dL (0.89-1.76); Procalcitonin 0.09 ng/ml (0.0-0.49); Thyroid Stimulating Hormone 2.34 uIU/mL (0.55-4.78); Troponin I < 0.002 ng/mL (0.0-0.045)
[2025-01-24 01:31] LABS: OBS Developer Lot # 424551749; OBS Performed By Magda; OBS QC OK? Yes; Occult Blood, Stool Negative (Negative)
[2025-01-24 01:36] LABS: Respiratory Syncytial Virus Ag Negative (Negative); Strep A Rapid Negative (Negative)
[2025-01-24 02:31] LABS: Collection Type, Urine Clean Catch; Squamous Epithelial Cell,Urine 0 /hpf (0-5)
[2025-01-24 02:46] LABS: Bilirubin,Urine Negative (Negative); Blood,Urine Negative (Negative); Clarity,Urine Clear (Clear/Hazy); Color,Urine Lt-Yellow (Lt Yel-Yel); Culture Indicated,Urine Not Indicated; Glucose, Urine Negative (Negative); Ketones,Urine Negative (Negative); Leukocyte Esterase,Urine Negative (Negative); Nitrite,Urine Negative (Negative); Protein,Urine Negative (Neg - Trace); RBC,Urine 1 /hpf (0-3); Specific Gravity,Urine 1.026 (1.001-1.035); Urobilinogen,Urine Negative mg/dL (0.0-1.0); WBC,Urine 5 /hpf (0-5)
--- NOTE | 2025-01-24 02:46 | PRELIM_ITS ---
CT scan of the chest, abdomen and pelvis with intravenous contrast (axial sections with sagittal and coronal reformats) January 24, 2025 at 0122 hours Clinical History: Shortness of breath and abdominal pain. Comparison: None available at the time of this report. Findings: Femoral to femoral bypass noted, patent. Right axillary to femoral bypass, patent. The lungs are clear. There is no pleural effusion or pneumothorax. The aorta is unremarkable without evidence of dissection or aneurysm. No evidence of mediastinal mass or lymphadenopathy. There is no pericardial effusion. The liver, spleen, pancreas, adrenals and kidneys are unremarkable. Status postcholecystectomy. No evidence of bowel obstruction. No evidence of appendicitis. The urinary bladder is unremarkable. There is no free fluid. Free air in the peritoneal cavity. S/p partial sigmoidectomy. Diverticulosis of the colon. Mild fat stranding peripheral to the sigmoid colon. Mild thickening of the descending colon wall associated with peripheral fat stranding. Focal thickening of the proximal descending colon. The osseous structures are unremarkable. Impression: 1. Free air in the peritoneal cavity, disease consistent with bowel perforation. Surgical consult is recommended. The site of perforation is indeterminate. 2. Probable diverticulitis of the sigmoid colon. Moderate colitis of the descending colon. 3. Focal thickening of the proximal descending colon. Further evaluation to assess for colon cancer is recommended. Discussion Details: Results verbally communicated to : Dr Licona at 02:30 AM 01/24/2025 Report Electronically Signed By: Alex Edmonds 01/24/2025 2:45:47 AM [EST]
[2025-01-24] MEDS: PIPER/TAZO 3.375 GM PREMIX 3.375 GM/50 ML BAG IV (03:07)
--- NOTE | 2025-01-24 03:10 | ECHO_ITS ---
Transthoracic Echo Report Ht (in): 69 Wt (lb): 152 Exam Location: Echo Lab Status: Emergency Store Lead: Vianey Lloyd Indications: Procedure Performed: BP: 162 / 61 HR: 86 MEASUREMENTS (Male / Female) Normal Values 2D ECHO LV Diastolic Diameter PLAX 4.4 cm 4.2 - 5.9 / 3.9 - 5.3 cm LV Systolic Diameter PLAX 2.9 cm IVS Diastolic Thickness 1.1 cm 0.6 - 1.0 / 0.6 - 0.9 cm LVPW Diastolic Thickness 1.0 cm 0.6 - 1.0 / 0.6 - 0.9 cm LV Relative Wall Thickness 0.5 LA Volume Index 22.6 cm?/m? 16 - 28 cm?/m? DOPPLER AV Peak Velocity 121.0 cm/s AV Peak Gradient 5.9 mmHg AV Mean Gradient 4.0 mmHg AV Velocity Time Integral 27.1 cm LVOT Peak Velocity 99.0 cm/s LVOT Peak Gradient 3.9 mmHg LVOT Velocity Time Integral 26.1 cm MV Area PHT 5.9 cm? Mitral E Point Velocity 66.0 cm/s Mitral A Point Velocity 83.4 cm/s Mitral E to A Ratio 0.8 LV E' Lateral Velocity 11.4 cm/s Mitral E to LV E' Lateral Ratio 5.8 LV E' Septal Velocity 8.3 cm/s Mitral E to LV E' Septal Ratio 8.0 FINDINGS Left Ventricle Normal left ventricular size, wall thickness, systolic function with no obvious regional wall motion abnormalities.there is grade I diastolic dysfunction of the left ventricle (impaired relaxation pattern). The ejection fraction is visually estimated at 55-60 %. Right Ventricle The right ventricle is normal in size and systolic function. Left Atrium The left atrium is normal by two-dimensional, color flow and Doppler imaging with no structural abnormalities, no thrombus formation present. Right Atrium The right atrium is normal by two-dimensional imaging, color flow and Doppler imaging with no structural abnormalities, no thrombus formation present. Atrial Septum The interatrial septum appears normal with no evidence of a shunt. Aorta The aorta is normal by two-dimensional, color flow and Doppler interrogation. Mitral Valve The mitral valve is normal by two-dimensional, color flow and Doppler interrogation. Trace mitral regurgitation. Aortic Valve The aortic valve is trileaflet and normal by two-dimensional, color flow and Doppler interrogation. There is no significant aortic valve regurgitation. Tricuspid Valve The tricuspid valve is not well visualized. Pulmonic Valve The pulmonic valve is not well visualized. There is no significant pulmonic valve regurgitation. Vessels Inferior vena cava not well visualized. Pericardium The pericardium is normal by two-dimensional imaging. There is no significant pericardial effusion. CONCLUSIONS Indication: Cardiac Clearance Normal LV size and function. Grade I diastolic dysfunction. Estimated EF 55-60% The RV is normal in size and systolic function. Trace mitral and trace tricuspid regurgitation noted. Elaine Patrick (Electronically Signed) Final Date: 26 January 2025 17:09
--- NOTE | 2025-01-24 03:18 | PD.RESHP ---
Documentation for date of: 01/24/25 [facility] History of Present Illness Chief complaint: abdominal pain History of present illness: Patient is 64 years old male with past medical history of CAD s/p PCI, hypertension, hyperlipidemia, CKD, history of ureteral stent placement, diverticulitis s/p partial colon resection, aortic stenosis s/p brachial iliac bypass graft on Eliquis, mitral valve prolapse, BPH presented to the ED due to worsening abdominal pain and bloody bowel movements. Patient reports he developed abdominal pain with bloody bowel movements approximately 4 days ago. His pain was mild initially but was prior getting progressively worse. Today his pain got significantly worse prompting him to come to the emergency room. He reports chills and nausea. He denies vomiting, chest pain, shortness of breath, dysuria symptoms. Patient is taking Eliquis 5 mg BID and took last dose today morning. Patient is followed by commercial loan reviewer Dr. Silverman outpatient. Patient reports being allergic for most of opioid medications and request to have Tylenol for pain control only. In the ED his blood pressure 163/61, pulse 102, respirations 18, temperature 98.8 ?F, oxygen saturation 98% on room air. Labs showed WBCs 11.8, hemoglobin 9.7, BUN 36, creatinine 1.5, glucose 140, lactic acid 1.2, troponin I negative, procalcitonin 0.09. Urinalysis was unremarkable. EKG showed sinus tachycardia and RBBB. Chest x-ray did not show pulmonary disease. CT chest abdomen pelvis showed free air in the peritoneal cavity, disease consistent with bowel perforation, the site of perforation is indeterminate. General surgery was consulted in the ED and patient was admitted for further management and evaluation. PMH: CAD s/p PCI, hypertension, hyperlipidemia, CKD, history of ureteral stent placement, diverticulitis s/p partial colon resection, aortic stenosis s/p brachial iliac bypass graft on Eliquis, mitral valve prolapse, BPH PSH: Partial colectomy, PCI, ureteral stent placement, brachiobasilic bypass graft placement, cholecystectomy. SH: Denies smoking tobacco or using illicit drugs. Drinks alcohol socially. FH: None. Allergies: Midazolam, codeine, meperidine, morphine, hydromorphone, oxycodone, methocarbamol. Medications: Med rec is pending. Review of Systems Review of Systems Systems Reviewed: All systems reviewed, normal except as documented Exam Vital Signs Temp Pulse Resp BP Pulse Ox O2 Del Method 98.7 F 98 18 174/66 H 99 Room Air 01/24/25 02:53 01/24/25 02:53 01/24/25 02:53 01/24/25 02:53 01/24/25 02:53 01/24/25 02:53 Narrative Exam Gen: Well-developed and well-nourished male. HEENT: NCAT, PERRLA, EOMI, MMM, anicteric conjunctivae. CVS: normal S1 and S2. RRR. Loud systolic murmur best heard over left sternal border. Resp: CTA B/L. No rhonchi, rales, crackles or wheezing. Abd: severely tender throughout, non-distended. BS hypoactive. MSK: Good ROM in BUE & BLE. No edema or rash. Brachial iliac bypass graft can be palpated over his right side. Neuro: CN II-XII grossly intact. Strength 5/5 in BUE & BLE. Alert and oriented x3. Psych: appropriate mood and affect. Results: Labs 01/23/25 23:05 01/23/25 23:05 Labs: Short CBC 01/23/25 Range/Units 23:05 WBC 11.8 H (3.8-10.6) Thou/mm3 Hgb 9.7 L (13.5-16.0) g/dL Hct 28.1 L (41.0-53.0) % Plt Count 171 (140-440) Thou/mm3 BMP 01/23/25 23:05 Sodium 142 Potassium 4.3 Chloride 106 Carbon Dioxide 24.5 BUN 36 H Creatinine 1.5 H Glucose 140 H Calcium 9.1 Cardiac Enzymes 01/23/25 Range/Units 23:05 Troponin I < 0.002 (0.0-0.045) ng/mL Liver Function 01/23/25 Range/Units 23:05 Total Bilirubin 0.3 (0.3-1.2) mg/dL Direct Bilirubin 0.1 (0.0-0.3) mg/dL ALT 10 (10-49) U/L Alkaline Phosphatase 70 (46-116) U/L Albumin 4.1 (3.4-4.8) gm/dL Urine 01/24/25 Range/Units 02:10 Urine Color Lt-Yellow (Lt Yel-Yel) Urine Clarity Clear (Clear/Hazy) Urine pH 6.0 (5.0-7.0) Ur Specific [place] 1.026 (1.001-1.035) Urine Protein Negative (Neg - Trace) Urine Glucose (UA) Negative (Negative) ABG Interpretation ABG results: 01/23/25 23:05 VBG pH 7.43 VBG pCO2 36 VBG pO2 38 VBG Base Excess 0 Quality Measures Quality Measures VTE prophylaxis Advance care planning discussed with:: patient Medications Home Medications and Allergies Home Medications ?Medication ?Instructions ?Recorded ?Confirmed ?Type ticagrelor 90 mg tablet (Brilinta) 90 mg PO BID 03/10/21 05/10/22 History tamsulosin 0.4 mg capsule 0.4 mg PO QHS 07/21/21 05/10/22 History Allergies Allergy/AdvReac Type Severity Reaction Status Date / Time meperidine Allergy Mild SEIZURE Verified 01/23/25 22:41 codeine Allergy Unknown SEIZURE Verified 01/23/25 22:41 methocarbamol Allergy Unknown SEIZURE Verified 01/23/25 22:41 avocado Allergy Verified 01/23/25 22:41 banana Allergy Verified 01/23/25 22:41 carrot Allergy Verified 01/23/25 22:41 midazolam Allergy Seizure Verified 01/23/25 22:41 morphine Allergy Verified 01/23/25 22:41 watermelon Allergy Verified 01/23/25 22:41 Visit Medications Sodium Chloride (Ns) 1,000 mls @ 75 mls/hr IV .[id number] CINDY Stop: 02/23/25 03:14 Cefepime HCl 2 gm/ Sodium (Chloride) 50 mls @ 100 mls/hr IV Q12HR CINDY Stop: 01/31/25 03:14 Metronidazole (Flagyl 500 Mg Iv) 500 mg in 100 mls @ 200 mls/hr IV Q6HR CINDY Stop: 01/31/25 03:14 Ondansetron HCl (Ondansetron Inj 2 Mg/Ml Inj 2 Ml) 4 mg IVP Q6H PRN; Protocol PRN Reason: NAUSEA OR VOMITING Stop: 02/23/25 03:09 Pantoprazole Sodium (Pantoprazole Inj 40 Mg Vial) 40 mg IVP QDAY [facility] Stop: 02/23/25 08:59 Discontinued Medications Acetaminophen (Ofirmev Inj) 1,000 mg in 100 mls @ 250 mls/hr IV X1 ONE Stop: 01/23/25 23:22 Last Infusion: 01/24/25 00:24 Dose: Infused Ceftriaxone Sodium/Dextrose (Rocephin/D5w 1gm Iv Premix) 1 g in 50 mls @ 100 mls/hr IV X1 ONE Stop: 01/23/25 23:28 Last Infusion: 01/24/25 00:25 Dose: Infused Sodium Chloride (Ns) 1,000 mls @ 999 mls/hr IV .Q1H1M ONE Stop: 01/23/25 23:59 Last Infusion: 01/24/25 02:44 Dose: Infused Piperacillin/Tazobactam/Dextrose (Zosyn) 3.375 gm in 50 mls @ 100 mls/hr IV X1 ONE Stop: 01/24/25 03:10 Last Admin: 01/24/25 03:07 Dose: 100 mls/hr Ketorolac Tromethamine (Ketorolac Inj 30 Mg/Ml Vial) 30 mg IVP X1 ONE Stop: 01/23/25 23:00 Last Admin: 01/24/25 03:06 Dose: Not Given Ondansetron HCl (Ondansetron Inj 2 Mg/Ml Inj 2 Ml) 4 mg IVP X1 ONE; Protocol Stop: 01/23/25 23:00 Last Admin: 01/24/25 03:11 Dose: Not Given Assessment & Plan Plan Patient is 64 years old male with past medical history of CAD s/p PCI, hypertension, hyperlipidemia, CKD, history of ureteral stent placement, diverticulitis s/p partial colon resection, aortic stenosis s/p brachial iliac bypass graft on Eliquis, mitral valve prolapse, BPH presented to the ED due to worsening abdominal pain and bloody bowel movements, was found to have bowel perforation and was admitted for further management. #Bowel perforation. #History of diverticulosis s/p partial bowel resection. - Patient presented with worsening abdominal pain and bloody bowel movements for 4 days. - He previously underwent partial bowel resection due to diverticulosis. - CT chest abdomen pelvis showed free air in the peritoneal cavity, disease consistent with bowel perforation, the site of perforation is indeterminate. - General surgery was consulted in the ED, Dr Martinez recommended admission for further management. Plan: - started on cefepime and metronidazole IV. - IV tylenol for pain control as he is allergic for most of opioid medications. - will need cardiac clearance due to complicated cardiovascular history if operative management is planned. - Eliquis and aspirin on hold. - NPO, NS 75cc/hr. #CAD s/p PCI. #Hyperlipidemia. #Hypertension. #Hx of aortic stenosis s/p brachial iliac bypass graft on Eliquis. #Hx of mitral valve prolapse. - Patient had 3 PCIs and is on aspirin and Eliquis due to brachial iliac bypass graft. Last dose Eliquis 5 mg 01/23/25 in the morning. - He is followed by Dr. Silverman. No records of his cardiac history in hospital EMR. - Troponin I negative, BNP < 20. EKG showed sinus tachycardia and RBBB. Plan: - cardiology consulted. - hold aspirin and Eliquis. - Labetalol 10 mg IV x1. - pending med rec. #Hx of CKD. #Hx of ureteral stent placement. #Hx of BPH. - Patient had ureteral stent placement by Dr. De La Cruz. - Labs showed Cr 1.5(baseline 1-1.3), BUN 36, eGFR 51. Urinalysis was unremarkable. Plan: - med rec pending. - NS 75cc/hr. FEN: NPO. DVT prophylaxis: SCDs. GI prophylaxis: protonix. Dispo: med tele. CODE STATUS: full code. Plan of care discussed with attending Dr. Bolton. Ty Rodrigez MD, PGY 2. Disclaimer: This note was dictated by speech recognition. Minor errors in sports intern may be present due to voice recognition software. Attending Provider Attestation/Addendum I have examined the patient, reviewed labs and imaging findings, discussed the case with the resident(s), and reviewed entered orders. I agree with the plan of care as outlined in this note, with these additional summaries/recommendations: 64-year-old male with past medical history of CKD, ureteral stents, multiple abdominal surgeries including partial colectomy from diverticulosis, severe PAD requiring multiple stents, CAD presents to the ED with chief complaint of nausea, vomiting, melena x 4 days. Imaging in the ER showed air under right hemidiaphragm and CT scan showed pattern consistent with pneumoperitoneum and bowel perforation. General surgery was consulted who recommended admission for further management including antibiotics and possible surgical intervention. Patient is on Eliquis at home and will need to have that held for potential surgery. Casper Bolton MD
--- NOTE | 2025-01-24 03:30 | PD.SURCONS ---
HPI Consult details Consult date: 01/24/25 Reason for consultation narrative: Pneumoperitoneum History of present illness: 64-year-old male with history of hypertension, hypercholesterolemia, BPH, CAD status post stent placement, peripheral artery disease status post right brachial artery to femoral and femoral to femoral artery bypass, stent placements of celiac and mesenteric arteries as well as renal artery, diverticular disease status post partial left colectomy presented to the emergency department with worsening abdominal pain. He has had 4 days history of abdominal pain that has been getting progressively worse. Has had nausea but denies vomiting fever or chills. He states that he has had black and tarry stool for the past few days. Upon presentation to the emergency department CT scan was obtained that revealed pneumoperitoneum. He has had colonoscopy in February 2021 that revealed diverticular disease, external hemorrhoid and polyp (tubular adenoma). Review of Systems Constitutional Constitutional: Denies chills and Denies fever(s) Cardiovascular Cardiovascular: Denies chest pain Respiratory Respiratory: Denies cough Gastrointestinal Gastrointestinal: Reports abdominal pain, Reports nausea and Denies vomiting Genitourinary Genitourinary: Denies difficulty urinating Hematologic/Lymphatic Hematologic/Lymphatic: Denies easy bleeding and Denies easy bruising Past Medical History Surgical History OTHER SURGICAL HX: Tara fundoplication, partial colectomy, multiple back surgeries, vascular surgeries as stated in HPI Social History SMOKING STATUS: Former smoker SUBSTANCE USE: does not use ALCOHOL: Current Meds Home Medications and Allergies Home Medications ?Medication ?Instructions ?Recorded ?Confirmed ?Type ticagrelor 90 mg tablet (Brilinta) 90 mg PO BID 03/10/21 05/10/22 History tamsulosin 0.4 mg capsule 0.4 mg PO QHS 07/21/21 05/10/22 History Allergies Allergy/AdvReac Type Severity Reaction Status Date / Time meperidine Allergy Mild SEIZURE Verified 01/23/25 22:41 codeine Allergy Unknown SEIZURE Verified 01/23/25 22:41 methocarbamol Allergy Unknown SEIZURE Verified 01/23/25 22:41 avocado Allergy Verified 01/23/25 22:41 banana Allergy Verified 01/23/25 22:41 carrot Allergy Verified 01/23/25 22:41 midazolam Allergy Seizure Verified 01/23/25 22:41 morphine Allergy Verified 01/23/25 22:41 watermelon Allergy Verified 01/23/25 22:41 Exam Vital Signs Temp Pulse Resp BP Pulse Ox O2 Del Method 98.7 F 98 18 174/66 H 99 Room Air 01/24/25 02:53 01/24/25 02:53 01/24/25 02:53 01/24/25 02:53 01/24/25 02:53 01/24/25 02:53 Constitutional Constitutional: no acute distress Routine Abdominal Exam Comments: Abdomen is soft and nondistended at this time. He does have tenderness to palpation throughout the abdomen, however he does not have diffuse peritonitis or rigidity at this time Results Results: Laboratory Laboratory results: results reviewed Results: Imaging CT scan - abdomen: report reviewed and image reviewed CT scan - pelvis: report reviewed and image reviewed Assessment & Plan Additional Assessment Additional comments: Pneumoperitoneum. Patient is resting comfortably, he is hemodynamically stable, not tachycardic and afebrile at this time Plan Keep patient strict n.p.o. with IV fluids and IV antibiotics. Hold Melissa. I had a lengthy discussion with the patient and his daughter and explained to them that if his symptoms improve with IV antibiotics continued a course. However if his symptoms worsen or clinical course deteriorate he will require exploratory laparotomy with possible colostomy.
[2025-01-24] MEDS: CEFEPIME INJ 2 GM in SODIUM CHLORIDE 0.9% (Popper) 50 ML IV ×3 (03:50→20:32)
[2025-01-24] MEDS: SODIUM CHLORIDE 0.9% 1000 ML 1,000 ML 75 ML IV ×2 (03:51→20:32)
[2025-01-24] MEDS: LABETALOL INJ 5 MG/ML VIAL 20 ML 10 MG IVP ×2 (04:54→23:44)
[2025-01-24] MEDS: metroNIDAZOLE/NS 500 MG IVPB 500 MG/100 ML BAG 200 MG IV ×3 (04:56→17:28)
[2025-01-24 05:36] LABS: Basophils % (Auto) 0 % (0-2.5); Eosinophils % (Auto) 0 % (0-10); Hematocrit 29.2 % (41.0-53.0); Immature Granulocytes % (Auto) 0 % (0-0); Immature Granulocytes Auto 0.03 Thou/mm3 (0.00-0.00); Lymphocytes # (Auto) 1.2 Thou/mm3 (1.0-4.8); Lymphocytes % (Auto) 13 % (10-50); Mean Corpuscular HGB Conc 34.2 g/dl (31.0-37.0); Mean Corpuscular Hemoglobin 30.2 pg (25.0-35.0); Mean Corpuscular Volume 88 fL (80-100); Monocytes # (Auto) 0.6 Thou/mm3 (0.0-0.8); Monocytes % (Auto) 6 % (0-12); Neutrophils # (Auto) 7.4 Thou/mm3 (1.8-7.7); Neutrophils % (Auto) 80 % (37-80); Nucleated Red Blood Cell % 0 /100 WBC (0); Platelet Count 148 Thou/mm3 (140-440); RDW Standard Deviation 44.4 fL (35.1-43.9); Red Blood Count 3.31 Miln/mm3 (4.50-5.90); White Blood Count 9.2 Thou/mm3 (3.8-10.6)
[2025-01-24 06:32] LABS: Alanine Aminotransferase 9 U/L (10-49); Albumin/Globulin Ratio 2.2 (1.2-2.2); Alkaline Phosphatase 65 U/L (46-116); Anion Gap 10 (7-16); BUN/Creatinine Ratio 19 Ratio (12-20); Bilirubin,Total 0.6 mg/dL (0.3-1.2); Blood Urea Nitrogen 25 mg/dL (9-23); Calcium 8.8 mg/dL (8.3-10.6); Calcium (Corrected) 8.8 mg/dL (8.5-10.1); Carbon Dioxide 22.4 mMol/L (20.0-31.0); Chloride 105 mMol/L (98-107); Creatinine (Component) 1.3 mg/dL (0.6-1.3); Estimated Creatinine Clearance 54.5 mL/min (>60); Globulin 1.8 gm/dL (2.3-3.5); Glucose 148 mg/dL (74-106); Magnesium 2.1 mg/dL (1.6-2.6); Osmolality,Calculated 281 (275-295); Sodium 137 mMol/L (136-145); Thyroid Stimulating Hormone 1.45 uIU/mL (0.55-4.78); Total Protein 5.8 gm/dL (5.7-8.2); eGFR > 60 See Note
[2025-01-24 06:46] LABS: Cardiac Risk Estimate 4.5 RATIO (4.0-6.7); Cholesterol 135 mg/dL (132-200); HDL Cholesterol 30 mg/dL (40-60); LDL Cholesterol,Calculated 85 mg/dL (0-130); Triglycerides 101 mg/dL (30-150)
[2025-01-24] MEDS: PANTOPRAZOLE INJ 40 MG VIAL IVP (10:49)
--- NOTE | 2025-01-24 13:18 | EVENTNT_ITS ---
<Statement entered by Tej Saldana MD - 01/25/25 12:26> I attest that I was physically present for the evaluation, physical examination, lab and imaging review of the patient with the residents. I discussed the case with the residents and agree with the findings and plans of care as documented below. Tej Saldana MD Documentation for date of: 01/24/25 Event Note Event Note: Mr. Hughes is a 64-year-old male with past medical history of CAD s/p PCI, hypertension, hyperlipidemia, CKD, history of ureteral stent placement, diverticulitis s/p partial colon resection, aortic stenosis s/p brachial iliac bypass graft on Eliquis, mitral valve prolapse, BPH presented to the ED due to worsening abdominal pain and bloody bowel movements. CT abdomen pelvis shows free air in the peritoneal cavity, disease consistent with bowel perforation the site of perforation is indeterminate. Patient was admitted to the hospital for further management, general surgeon Dr. Martinez was consulted and is following the case. Patient continues to complain of some pain, though only wants IV Tylenol for pain. Will continue to hold aspirin and Eliquis, conservative management with IV fluids and IV antibiotics, general surgery is closely following the case. Will continue close monitoring if any change in condition will contact surgery. #Bowel perforation. #History of diverticulosis s/p partial bowel resection. - Continue cefepime and metronidazole IV. - IV tylenol for pain control as per patient request - Consulted cardiology for close monitoring - Eliquis and aspirin on hold. - NPO, NS 75cc/hr. #CAD s/p PCI. #Hyperlipidemia. #Hypertension. #Hx of aortic stenosis s/p brachial iliac bypass graft on Eliquis. #Hx of mitral valve prolapse. Plan: - cardiology consulted. - hold aspirin and Eliquis. - Labetalol 10 mg IV x1, hydralazine 10 mg IV x 1 - pending med rec. #Hx of CKD. #Hx of ureteral stent placement. #Hx of BPH. Pending med reconciliation, will follow Case discussed with Attending Dr. Saldana. Kin Mcnair PGY1 Disclaimer: This note was dictated by speech recognition. Minor errors in weight loss physician may be present due to voice recognition software.
--- NOTE | 2025-01-24 14:27 | PD.SURPROG ---
Documentation for date of: 01/24/25 Subjective Subjective Narrative: Patient is seen and examined. He is resting comfortably, his pain is improved. He denies nausea or vomiting Exam Vital Signs Temp Pulse Resp BP Pulse Ox O2 Del Method 100.1 F 88 20 175/64 H 98 Room Air 01/24/25 13:42 01/24/25 13:42 01/24/25 13:42 01/24/25 13:42 01/24/25 13:42 01/24/25 13:42 Constitutional Constitutional: no acute distress Routine Abdominal Exam Comments: Abdomen is soft and nondistended. He has hypoactive bowel sounds. He has tenderness to deep palpation throughout the abdomen, no rebound tenderness or peritonitis at this time Assessment & Plan Assessment Additional comments: Pneumoperitoneum, clinically improving. WBC is normal. She has remained afebrile, hemodynamically stable without tachycardia Plan Continue to keep n.p.o. with IV fluids and IV antibiotics. Will continue to monitor and manage conservatively.
--- NOTE | 2025-01-24 16:01 | PC.NURSE ---
Pt was transferred up to floor by this RN connected to tele w/o incident, staff at bedside to assume care.
[2025-01-24] MEDS: ACETAMINOPHEN IVPB 1,000 MG/100 ML VIAL 250 MG IV ×2 (16:15→22:23)
[2025-01-24] MEDS: hydrALAZINE INJ 20 MG/ML VIAL 10 MG IVP ×2 (16:47→22:22)
[2025-01-24] MEDS: HEPARIN SOD INJ 5000 UNIT/ML VIAL 4000 UNIT IV (18:24)
[2025-01-24] MEDS: Heparin/D5w 25K 250 ML Ivpb 25,000 UNIT/250 ML BAG 8.274 UNIT IV (18:27)
--- NOTE | 2025-01-24 22:57 | EKG_ITS ---
[facility] Test Date: 2025-01-24 Pat Name: MAXINE ORTEGA Department: Room: S366A Gender: Male Meteorological Aide: ABA : 1960 Requested By: Dario Hung Order Number: [id number] Reading MD: Dario Hung Measurements Intervals [place] Rate: 101 P: 73 ND: 175 QRS: 81 QRSD: 133 T: 46 QT: 360 QTc: 469 Interpretive Statements SINUS TACHYCARDIA WITH OCCASIONAL SUPRAVENTRICULAR PREMATURE COMPLEXES RIGHT BUNDLE BRANCH BLOCK SEPTAL MYOCARDIAL INFARCTION , OF INDETERMINATE AGE Compared to ECG 01/23/2025 23:20:22 Myocardial infarct finding now present /store/S0/[id number]
--- NOTE | 2025-01-24 23:03 | PC.NURSE ---
seen and examined by Dr. Campbell Hung- fernando/ orders made and carried out.
[2025-01-24] MEDS: NITROGLYCERIN 0.4 MG SUBL BTL #25 SL (23:19)
--- NOTE | 2025-01-24 23:50 | EVENTNT_ITS ---
<Statement entered by Casper Bolton MD - 02/03/25 08:42> Patient seen and examined at beside with resident. Agree with assessment and plan as dictated below. Casper Bolton MD Documentation for date of: 01/24/25 Event Note Event Note: Rapid response was called around 11:32 PM given that patient had onset of chest pain which was pressure-like and a 10/10. Patient's blood pressure was elevated at this time and shortly before the rapid was called patient had an EKG done and troponins were ordered given that we got a call for chest pain and given the patient's cardiac history we decided to go ahead and give patient nitro 0.4 sublingual. At this time EKG did not show any ST changes from previous EKG. Patient's chest pain was doing better after he got the nitro. Abdomen to the right. Patient was transferred to telemetry floor and was given labetalol 10 mg IV x 1. Of note patient prior to rapid response was called patient received hydralazine 10 mg IV x 1 earlier during the night since his blood pressure was 1 in the 170s over 80s and his heart rate was 82. Blood pressure did not improve with hydralazine, but he did develop tachycardia. Case disclosed with Attending Dr. Hoang Hung PGY1 Disclaimer: Even though this this note was dictated by speech recognition and even though it was carefully revised there may still be minor errors in insurance compliance analyst due to voice recognition software.
[2025-01-24 23:59] LABS: Troponin I < 0.020 ng/mL (0.0-0.045)
[2025-01-25] VITALS (13 sets, daily range): BP systolic 156–175; BP diastolic 54–69; PULSE 71–92; RESP 15–24; TEMP 36.8–38.3; O2SAT 96–98
[2025-01-25] MEDS: metroNIDAZOLE/NS 500 MG IVPB 500 MG/100 ML BAG 200 MG IV ×4 (00:12→18:08)
[2025-01-25 01:24] LABS: Partial Thromboplastin Time 64.9 Seconds (22.0-36.0)
--- NOTE | 2025-01-25 01:24 | ESCONSULT_ITS ---
RE: MAXINE ORTEGA : 1960 DATE OF CONSULTATION: 01/24/2025 CONSULTING PHYSICIANS: Hospitalist, also Dr. Martinez, Dr. Wai Luque, and resident team. REASON FOR CONSULTATION: Cardiovascular evaluation, possible surgery clearance and also vascular disease. HISTORY OF PRESENT ILLNESS: The patient is a 64-year-old pleasant male, very well known to me for many years, more than 20 years for longstanding history of multivessel coronary stent placement of LAD stent placement in 03/2020 was the last stent. The patient also has a history of renal aortic stenosis, right renal artery stent placement, moderate bilateral carotid stenosis, also severe claudication with aortoiliac occlusion, Erik syndrome, bilateral external iliac disease, and celiac artery stenosis, and history of chronic kidney disease stage III who underwent diverticulitis. He underwent mesenteric and celiac stent placement of mesenteric artery stenosis in 04/2023 successfully. Subsequently, he has had significant aortoiliac disease, severe claudication symptoms. The patient underwent extensive vascular surgery most recently in 02/2024. The patient underwent axillofemoral bypass graft surgery, a six-hour surgery at [facility] on 03/19/2024. There is successful revascularization reestablishment for left lower extremity and subsequently in 09/2024, the patient underwent left carotid endarterectomy as well around 07/2024, recovered very well, but in around 10/2023, the patient underwent with removal of the clot and axillofemoral bypass graft, which is totally occluded. Now it is open. Now since then he is on aspirin 81 mg and Eliquis 5 mg twice daily because of clotting at axillofemoral bypass surgery. He was doing fairly well until today. The patient presented to the hospital with severe abdominal pain, left lower quadrant and epigastric pain. He was found to have air under the diaphragm. Dr. Martinez's consultation was obtained. He felt that the patient has diverticulitis and possible microperforation with air under the diaphragm. Conservative management with IV antibiotics. Fluids were recommended for now. The patient is on Eliquis and aspirin, which has been held. Cardiac evaluationrecommended for evaluation of perforation, possible surgery clearance and also for assessment of vascular problems including recent axillofemoral bypass graft surgery. PAST MEDICAL HISTORY: Significant for history CAD, status post PCI, as described earlier, hypertension, hypercholesterolemia, CKD, history of ureteral stent placement, diverticulitis, status post partial colon resection, aortic stenosis, right axillary iliac bypass graft surgery and history of celiac and mesenteric artery stent placement, He had stent placement in left anteriordescending artery several years ago. SOCIAL HISTORY: The patient is not a smoker. Does not drink,_ alcohol FAMILY HISTORY: Positive for cardiovascular problems. ALLERGIES: CODEINE, , MORPHINE, HYDROMORPHONE. PAST MEDICAL HISTORY: Hypertension. SOCIAL HISTORY: The patient is nonsmoker, does not drink alcoholic beverages. FAMILY HISTORY: Non-contributory. REVIEW OF SYSTEMS: Cardiovascular: Increased shortness of breath, but no chest pain, orthopnea, PND. Gastrointestinal: History of abdominal pain as described earlier. Vascular: No history of any pain. PHYSICAL EXAMINATION: GENERAL: Well-nourished acutely chronically ill male who appeared to be quite alert, awake and aggressive. Vital Signs: Remains stable for now. His blood pressure is 170/70. Pulse rate is 100. Respirations 16. Temperature normal. HEENT: Head is atraumatic, normocephalic. Eyes normal. ENT normal. Neck: Supple. No JVD. Carotid pulse felt with right carotid bruit present Lungs: No rales or rhonchi. Chest: There is evidence of right axillofemoral bypass graft. There are bruits present. Lungs clear. Heart: S1, S2 regular. No gallops heard. Abdomen: Thin and soft. Extremities: No edema. Distal pulses are 1+. /Rectal: Not performed. DIE CUTTER APPRENTICE: normal DIAGNOSTIC DATA: Electrocardiogram was unremarkable. Showed evidence of normal sinus rhythm. Right bundle branch block, nonspecific ST depression, nonspecific changes. Compared to previous EKG, no change. The patient did have a complete cardiac work, one is recently within the last one year including echocardiogram for normal left ventricular function, nuclear scan normal. He did have carotid duplex scan showed moderate carotid disease, right internal carotid artery. His laboratory data showed evidence of white count normal, hemoglobin 10. Chemistry panel showed normal creatinine and BUN. CT scan of the chest, abdomen, and pelvis showed evidence of pneumoperitoneum and evidence diverticulitis IMPRESSION/ASSESSMENT: 1. Acute perforation of colon with positive microperforation of diverticulitis, clinically stable. No white count elevation. 2. Known extensive atherosclerotic cardiovascular disease with status post stent placement, Left_ descending artery. 3. Status post stent placement in mesenteric artery, celiac artery. 4. Carotid endarterectomy on the left side and moderate right carotid stenosis. 5. Abdominal pain, acute diverticulitis with perforation and microperforation pnemoperotoneum RECOMMENDATIONS: The patient is managed conservatively. We will stop the Eliquis completely. Stop the aspirin complete. Start on IV heparin drip until decision is made to do surgical intervention, if the patient does require surgery, then stop the heparin 4 hours and proceed with surgery and also recommend monitoring closely, ICD and PTD. The patient may require further workup if necessary, but for now, I am giving cardiac clearance for surgery if the surgery is warranted mainly because of emergency surgery. Cardiac brooks he is stable here. Nuclear scan echo is fairly unremarkable only recently. Thank you for referring this patient for cardiac assessment. We would be glad to perform the work up, if necessary. DT: 23:40:01 TT: 01:13:00 Ref: [id number] - TID: [id number] [facility]
[2025-01-25] MEDS: ONDANSETRON INJ 2 MG/ML INJ 2 ML 4 MG IVP ×3 (05:20→18:07)
[2025-01-25 06:14] LABS: Basophils % (Auto) 1 % (0-2.5); Eosinophils # (Auto) 0.1 Thou/mm3 (0.0-0.5); Eosinophils % (Auto) 1 % (0-10); Hematocrit 29.3 % (41.0-53.0); Hemoglobin 9.7 g/dL (13.5-16.0); Immature Granulocytes % (Auto) 0 % (0-0); Immature Granulocytes Auto 0.02 Thou/mm3 (0.00-0.00); Lymphocytes # (Auto) 0.9 Thou/mm3 (1.0-4.8); Lymphocytes % (Auto) 13 % (10-50); Mean Corpuscular HGB Conc 33.1 g/dl (31.0-37.0); Mean Corpuscular Hemoglobin 29.5 pg (25.0-35.0); Mean Corpuscular Volume 89 fL (80-100); Monocytes # (Auto) 0.5 Thou/mm3 (0.0-0.8); Monocytes % (Auto) 8 % (0-12); Neutrophils # (Auto) 4.9 Thou/mm3 (1.8-7.7); Neutrophils % (Auto) 77 % (37-80); Nucleated Red Blood Cell % 0 /100 WBC (0); Platelet Count 144 Thou/mm3 (140-440); Red Blood Count 3.29 Miln/mm3 (4.50-5.90); White Blood Count 6.4 Thou/mm3 (3.8-10.6)
[2025-01-25 06:44] LABS: INR 1.2 (0.9-1.3); Prothrombin Time 12.7 Seconds (9.0-12.2)
[2025-01-25 07:41] LABS: Alanine Aminotransferase 8 U/L (10-49); Albumin, Serum 3.7 gm/dL (3.4-4.8); Albumin/Globulin Ratio 2.1 (1.2-2.2); Alkaline Phosphatase 56 U/L (46-116); Anion Gap 12 (7-16); BUN/Creatinine Ratio 13 Ratio (12-20); Bilirubin,Total 0.7 mg/dL (0.3-1.2); Blood Urea Nitrogen 12 mg/dL (9-23); Calcium 8.4 mg/dL (8.3-10.6); Calcium (Corrected) 8.6 mg/dL (8.5-10.1); Carbon Dioxide 20.9 mMol/L (20.0-31.0); Chloride 108 mMol/L (98-107); Creatinine (Component) 0.9 mg/dL (0.6-1.3); Estimated Creatinine Clearance 78.7 mL/min (>60); Globulin 1.8 gm/dL (2.3-3.5); Glucose 124 mg/dL (74-106); Osmolality,Calculated 281 (275-295); Phosphorous 3.2 mg/dL (2.4-5.1); Potassium 4.2 mMol/L (3.4-5.1); Sodium 141 mMol/L (136-145); Total Protein 5.5 gm/dL (5.7-8.2); eGFR > 60 See Note
[2025-01-25] MEDS: CEFEPIME INJ 2 GM in SODIUM CHLORIDE 0.9% (Popper) 50 ML IV ×2 (08:35→21:24)
[2025-01-25] MEDS: PANTOPRAZOLE INJ 40 MG VIAL IVP (08:36)
--- NOTE | 2025-01-25 09:31 | PD.SURPROG ---
Documentation for date of: 01/25/25 Subjective Subjective Narrative: Patient is seen and examined. He is resting comfortably. Pain continues to improve. He started passing flatus but no bowel movement yet Exam Vital Signs Temp Pulse Resp BP Pulse Ox O2 Del Method 98.9 F 86 22 H 162/61 H 98 Room Air 01/25/25 08:00 01/25/25 08:00 01/25/25 08:00 01/25/25 08:00 01/25/25 08:00 01/25/25 08:00 Constitutional Constitutional: no acute distress Routine Abdominal Exam Comments: Abdomen is soft and nondistended. He has localized left mid abdominal tenderness to deep palpation, no rebound tenderness or peritonitis at this time Assessment & Plan Assessment Additional comments: Pneumoperitoneum likely from perforated diverticulitis. Clinically improving. Plan Continue IV antibiotics. Will keep patient n.p.o. for additional 24 hours, if continues to improve we will start patient on liquid diet tomorrow.
--- NOTE | 2025-01-25 10:47 | PD.RESPRO ---
Documentation for date of: 01/25/25 Subjective Subjective Interval history: Patient seen and examined at bedside. Patient had a rapid response overnight for chest pain and hypertension, was given x 1 nitro sublingual and labetalol IV. Will continue to monitor blood pressure, will give labetalol as needed for management. Patient is being followed by general surgery, will continue with IV fluids and IV antibiotics. He reports that his pain has improved compared to yesterday, will keep n.p.o. with close monitoring. Will continue with heparin drip as recommended by cardiology. Exam Vital Signs Temp Pulse Resp BP Pulse Ox O2 Del Method 98.9 F 86 22 H 162/61 H 98 Room Air 01/25/25 08:00 01/25/25 08:00 01/25/25 08:00 01/25/25 08:00 01/25/25 08:00 01/25/25 08:00 Narrative Exam Gen: Well-developed and well-nourished male. HEENT: NCAT, PERRLA, EOMI, MMM, anicteric conjunctivae. CVS: normal S1 and S2. RRR. Loud systolic murmur best heard over left sternal border. Resp: CTA B/L. No rhonchi, rales, crackles or wheezing. Abd: severely tender throughout, non-distended. BS hypoactive. MSK: Good ROM in BUE & BLE. No edema or rash. Brachial iliac bypass graft can be palpated over his right side. Neuro: CN II-XII grossly intact. Strength 5/5 in BUE & BLE. Alert and oriented x3. Psych: appropriate mood and affect. Objective Labs 01/25/25 05:36 01/25/25 05:36 Labs: Laboratory Results - last 24 hr 01/24/25 01/25/25 01/25/25 23:14 00:36 05:36 WBC 6.4 RBC 3.29 L Hgb 9.7 L Hct 29.3 L MCV 89 MCH 29.5 MCHC 33.1 RDW Std Deviation 45.0 H Plt Count 144 Neut % (Auto) 77 Lymph % (Auto) 13 [place] % (Auto) 8 Eos % (Auto) 1 Baso % (Auto) 1 Neut # (Auto) 4.9 Lymph # (Auto) 0.9 L [place] # (Auto) 0.5 Eos # (Auto) 0.1 Baso # (Auto) 0.0 Immature Gran # (Auto) 0.02 H Absolute Nucleated RBC 0.00 Immature Gran % 0 Nucleated RBC % 0 PT 12.7 H INR 1.2 APTT 64.9 H D 51.0 H D Sodium 141 Potassium 4.2 Chloride 108 H Carbon Dioxide 20.9 Anion Gap 12 BUN 12 Creatinine 0.9 Estim Creat Clear Calc 78.7 eGFR > 60 BUN/Creatinine Ratio 13 Glucose 124 H Calculated Osmolality 281 Calcium 8.4 Corrected Calcium 8.6 Phosphorus 3.2 Magnesium 2.0 Total Bilirubin 0.7 ALT 8 L Alkaline Phosphatase 56 Troponin I < 0.020 Total Protein 5.5 L Albumin 3.7 Globulin 1.8 L Albumin/Globulin Ratio 2.1 ABG Interpretation ABG results: 01/23/25 23:05 VBG pH 7.43 VBG pCO2 36 VBG pO2 38 VBG Base Excess 0 Quality Measures Quality Measures VTE prophylaxis Advance care planning discussed with:: patient Assessment & Plan Assessment Current Active Medications: Generic Name Dose Route Start Last Admin Trade Name Freq PRN Reason Stop Dose Admin Sodium Chloride 1,000 mls @ 75 mls/hr 01/24/25 03:15 01/24/25 20:32 Ns IV 02/23/25 03:14 75 mls/hr .[id number] CINDY Administration Cefepime HCl 2 gm/ Sodium 50 mls @ 100 mls/hr 01/24/25 03:15 01/25/25 08:35 Chloride IV 01/31/25 03:14 100 mls/hr Q12HR CINDY Administration Metronidazole 500 mg in 100 mls @ 200 mls/hr 01/24/25 03:15 01/25/25 05:21 Flagyl 500 Mg Iv IV 01/31/25 03:14 200 mls/hr Q6HR CINDY Administration Heparin Sodium/Dextrose 25,000 unit in 250 mls @ 8.274 mls/hr 01/24/25 18:00 01/25/25 01:31 Heparin In D5w Ivpb IV 02/07/25 17:59 12 units/kg/hr .Q24H CINDY 8.274 mls/hr Titration Protocol 12 UNITS/KG/HR Ondansetron HCl 4 mg 01/24/25 03:10 01/25/25 05:20 Ondansetron Inj 2 Mg/Ml Inj 2 Ml IVP 02/23/25 03:09 4 mg Q6H PRN Administration NAUSEA OR VOMITING Protocol Pantoprazole Sodium 40 mg 01/24/25 09:00 01/25/25 08:36 Pantoprazole Inj 40 Mg Vial IVP 02/23/25 08:59 40 mg QDAY CINDY Administration Plan Patient is 64 years old male with past medical history of CAD s/p PCI, hypertension, hyperlipidemia, CKD, history of ureteral stent placement, diverticulitis s/p partial colon resection, aortic stenosis s/p brachial iliac bypass graft on Eliquis, mitral valve prolapse, BPH presented to the ED due to worsening abdominal pain and bloody bowel movements, was found to have bowel perforation and was admitted for further management. #Bowel perforation. #History of diverticulosis s/p partial bowel resection. High suspicion of microperforation considering history of diverticulosis - Patient presented with worsening abdominal pain and bloody bowel movements for 4 days. - He previously underwent partial bowel resection due to diverticulosis. - CT chest abdomen pelvis showed free air in the peritoneal cavity, disease consistent with bowel perforation, the site of perforation is indeterminate. - General surgery was consulted in the ED, Dr Martinez recommended admission for further management. - RCRI risk score 2 points, 10.1% risk of major cardiac event, METS greater than 4 Plan: - Continue cefepime and metronidazole IV. - IV tylenol for pain control as he is allergic for most of opioid medications. - Cardiology consulted for cardiac clearance - Eliquis and aspirin on hold. - NPO, NS 75cc/hr. #CAD s/p PCI. #Hyperlipidemia. #Hypertension. #Hx of aortic stenosis s/p brachial iliac bypass graft on Eliquis. #Hx of mitral valve prolapse. - Patient had 3 PCIs and is on aspirin and Eliquis due to brachial iliac bypass graft. Last dose Eliquis 5 mg 01/23/25 in the morning. - He is followed by Dr. Silverman. Dr. Silverman's note reviewed, patient does have a history of occlusion of graft hence will benefit from anticoagulation - Troponin I negative, BNP < 20. EKG showed sinus tachycardia and RBBB. - Patient is on lisinopril 20 mg p.o. twice daily, amlodipine 5 mg p.o. daily and tadalafil 5 mg p.o. daily Plan: - Started on heparin drip per cardiology recommendations - cardiology consulted, appreciate recommendations - hold aspirin and Eliquis. - Labetalol 10 mg IV x1, will continue with labetalol as needed for elevated blood pressure #Hx of CKD. #Hx of ureteral stent placement. #Hx of BPH. - Patient had ureteral stent placement by Dr. De La Cruz. - Labs showed Cr 1.5(baseline 1-1.3), BUN 36, eGFR 51. Urinalysis was unremarkable. Plan: - Patient is on tamsulosin 0.4 mg nightly, will hold currently n.p.o. - NS 75cc/hr. FEN: NPO. DVT prophylaxis: Heparin drip GI prophylaxis: Protonix. Dispo: Telemetry CODE STATUS: Full code. Plan of care discussed with attending Dr. Saldana. Kin Mcnair PGY1. Disclaimer: This note was dictated by speech recognition. Minor errors in rodeo clown may be present due to voice recognition software. Attending Provider Attestation/Addendum I attest that I was physically present for the evaluation, physical examination, lab and imaging review of the patient with the residents. I discussed the case with the residents and agree with the findings and plans of care as documented above. At bedside today, patient continues to have abdominal pain but states it is better compared to yesterday. Patient had a rapid response called overnight after having chest pain following IV hydralazine. He received sublingual nitroglycerin and labetalol. As needed labetalol has been added for blood pressure control. Continues to be on broad-spectrum IV antibiotics, awaiting culture results. Discussed with cardiology yesterday, patient has multiple stents placed, has increased risk of stent thrombosis, was recommended to be started on heparin gtt, which was started yesterday evening, appreciate recommendations. General surgery following closely, recommended bowel rest and conservative management, appreciate recommendations. Patient had a temperature of 100.7 ?F this morning. WBC count has been downtrending, kidney function has improved, patient continues to be on gentle IV hydration. Tej Saldana MD
[2025-01-25 11:43] LABS: Partial Thromboplastin Time 45.8 Seconds (22.0-36.0)
[2025-01-25] MEDS: HEPARIN SOD INJ 5000 UNIT/ML VIAL 2000 UNIT IV (12:24)
[2025-01-25] MEDS: amLODIPine BESYLATE 5 MG TABLET PO (15:02)
[2025-01-25] MEDS: SODIUM CHLORIDE 0.9% 1000 ML 1,000 ML 75 ML IV (15:02)
[2025-01-25] MEDS: Lisinopril 20 MG TABLET PO ×2 (15:03→21:25)
--- NOTE | 2025-01-25 15:36 | PC.SS ---
Juan Manuel Hughes is a 64-year-old male admitted to [facility] for Bowel Perf. SS conducted bedside contact with the patient to complete initial assessment and to discuss discharge planning. Role and reason explained. Patient confirmed demographic information. Patient identifies his Johnson Simpson [phone] as his surrogate decision maker. Pt states he is able to complete all ADL?s independent. Pt does not possesses any DME. Pts PCP is Chary Montaño. [facility] choice [facility]. Discharge options discussed and the pt wishes to return home.? Pt family will provide transport. No further intervention required at this time, health and social care teacher would be available to address any further concerns. DC Plan: Home Contact his Johnson Simpson [phone] Address: Confirmed on face sheet PCP: CHARY
[2025-01-25] MEDS: atenoloL 25 MG TABLET 50 MG PO ×2 (17:10→21:25)
[2025-01-25 18:54] LABS: Partial Thromboplastin Time 57.6 Seconds (22.0-36.0)
--- NOTE | 2025-01-25 20:57 | PC.NURSE ---
REPORT HANDOFF GIVEN TO BRIDGER SALTER
[2025-01-25] MEDS: Heparin/D5w 25K 250 ML Ivpb 25,000 UNIT/250 ML BAG 9.652 UNIT IV (21:22)
[2025-01-26] VITALS (8 sets, daily range): BP systolic 133–161; BP diastolic 37–72; PULSE 59–78; RESP 16–28; TEMP 37–37.7; O2SAT 96–97; BMI 22.5
[2025-01-26] MEDS: ONDANSETRON INJ 2 MG/ML INJ 2 ML 4 MG IVP ×4 (00:12→17:46)
[2025-01-26] MEDS: metroNIDAZOLE/NS 500 MG IVPB 500 MG/100 ML BAG 200 MG IV ×4 (00:17→17:47)
--- NOTE | 2025-01-26 00:18 | ESPR_ITS ---
RE: MAXINE ORTEGA : 1960 DATE OF SERVICE: 01/25/2025 SUBJECTIVE: The patient is a 64-year-old male. He was admitted to the hospital with diverticulitis with perforation and pneumoperitoneum, managed conservatively. He also has a history of hypertension, CAD, on multiple medications. His blood pressure medications were held. Apparently, rapid response, _ tachycardia and hypertension, transferred to telemetry today. His blood pressure is now better, but still high 160/60. The patient did not get his blood pressure medications. Heart rate is also on the fasting state. He does not feel well when the blood pressure medication started. He normally takes lisinopril 20 mg daily, amlodipine 5 mg daily, atenolol 50 mg. He is not having any shortness of breath or chest pain. OBJECTIVE: Vital Signs: Blood pressure 169/54, pulse rate is 78, respirations 24, and temperature normal. HEENT: Head is atraumatic, normocephalic. Eyes normal. ENT normal. Neck: Supple. No JVD or carotid pulse felt. There is no bruit. Chest: Symmetrical. Lungs: Decreased breath sounds. No rales or rhonchi. Heart: S1 and S2 regular. No gallops. Abdomen: Thin and soft. Extremities: Mild edema. IMPRESSION: 1. Hypertension, not controlled well because of lack of medication. 2. Axillofemoral bypass graft, on anticoagulation, now on heparin. 3. Diverticulitis with pneumoperitoneum perforation, on antibiotics. Conservative management. RECOMMENDATIONS: 1. Continue atenolol 50 mg b.i.d. Amlodipine 5 mg daily, and lisinopril will be started as well 20 mg b.i.d. that he normally takes. Otherwise, blood pressure goes too high. He gets very symptomatic. 2. He can be n.p.o., but to have medications if . DT: 23:42:31 TT: 00:14:00 Ref: [id number] - TID: [id number] [facility]
[2025-01-26 02:29] LABS: Partial Thromboplastin Time 55.8 Seconds (22.0-36.0)
[2025-01-26] MEDS: SODIUM CHLORIDE 0.9% 1000 ML 1,000 ML 75 ML IV (04:25)
[2025-01-26 05:49] LABS: Basophils % (Auto) 0 % (0-2.5); Eosinophils # (Auto) 0.2 Thou/mm3 (0.0-0.5); Eosinophils % (Auto) 3 % (0-10); Hematocrit 29.7 % (41.0-53.0); Immature Granulocytes % (Auto) 1 % (0-0); Immature Granulocytes Auto 0.03 Thou/mm3 (0.00-0.00); Lymphocytes # (Auto) 1.2 Thou/mm3 (1.0-4.8); Lymphocytes % (Auto) 21 % (10-50); Mean Corpuscular HGB Conc 33.7 g/dl (31.0-37.0); Mean Corpuscular Hemoglobin 30.1 pg (25.0-35.0); Mean Corpuscular Volume 90 fL (80-100); Monocytes # (Auto) 0.5 Thou/mm3 (0.0-0.8); Monocytes % (Auto) 9 % (0-12); Neutrophils # (Auto) 3.7 Thou/mm3 (1.8-7.7); Neutrophils % (Auto) 65 % (37-80); Nucleated Red Blood Cell % 0 /100 WBC (0); Platelet Count 140 Thou/mm3 (140-440); RDW Standard Deviation 43.9 fL (35.1-43.9); Red Blood Count 3.32 Miln/mm3 (4.50-5.90); White Blood Count 5.7 Thou/mm3 (3.8-10.6)
[2025-01-26 06:35] LABS: Alanine Aminotransferase < 7 U/L (10-49); Albumin, Serum 3.5 gm/dL (3.4-4.8); Albumin/Globulin Ratio 1.9 (1.2-2.2); Alkaline Phosphatase 48 U/L (46-116); Anion Gap 9 (7-16); BUN/Creatinine Ratio 13 Ratio (12-20); Bilirubin,Total 0.6 mg/dL (0.3-1.2); Blood Urea Nitrogen 12 mg/dL (9-23); Calcium 8.2 mg/dL (8.3-10.6); Calcium (Corrected) 8.6 mg/dL (8.5-10.1); Carbon Dioxide 21.8 mMol/L (20.0-31.0); Chloride 109 mMol/L (98-107); Creatinine (Component) 0.9 mg/dL (0.6-1.3); Estimated Creatinine Clearance 78.7 mL/min (>60); Globulin 1.8 gm/dL (2.3-3.5); Glucose 81 mg/dL (74-106); Magnesium 1.8 mg/dL (1.6-2.6); Osmolality,Calculated 278 (275-295); Phosphorous 2.4 mg/dL (2.4-5.1); Sodium 140 mMol/L (136-145); Total Protein 5.3 gm/dL (5.7-8.2); eGFR > 60 See Note
[2025-01-26 06:37] LABS: INR 1.2 (0.9-1.3); Partial Thromboplastin Time 62.2 Seconds (22.0-36.0); Prothrombin Time 12.7 Seconds (9.0-12.2)
--- NOTE | 2025-01-26 07:47 | PD.SURPROG ---
Documentation for date of: 01/26/25 Subjective Subjective Narrative: Patient is seen and examined. His pain continues to improve. He has been voiding without difficulty. He has been passing flatus but no bowel movement yet Exam Vital Signs Temp Pulse Resp BP Pulse Ox O2 Del Method 98.9 F 68 20 157/70 H 96 Room Air 01/26/25 04:00 01/26/25 04:00 01/26/25 04:00 01/26/25 04:00 01/26/25 04:00 01/26/25 04:00 Constitutional Constitutional: no acute distress Routine Abdominal Exam Comments: Abdomen is soft and nondistended. He has very minimal tenderness to deep palpation over left side of the abdomen, no rebound tenderness or peritonitis at this time Assessment & Plan Assessment Additional comments: Pneumoperitoneum likely from perforated diverticulitis, clinically improving Plan Continue IV antibiotics. Start patient on clear liquids
[2025-01-26] MEDS: CEFEPIME INJ 2 GM in SODIUM CHLORIDE 0.9% (Popper) 50 ML IV ×2 (08:44→20:31)
[2025-01-26] MEDS: PANTOPRAZOLE INJ 40 MG VIAL IVP (08:45)
[2025-01-26] MEDS: atenoloL 25 MG TABLET 50 MG PO ×2 (08:46→20:31)
[2025-01-26] MEDS: amLODIPine BESYLATE 5 MG TABLET PO (08:46)
[2025-01-26] MEDS: Lisinopril 20 MG TABLET PO ×2 (08:46→20:31)
--- NOTE | 2025-01-26 09:48 | PC.SS ---
Follow up note: Pt is NPO. Surgery is pending. Pt will return home upon dc.
--- NOTE | 2025-01-26 12:46 | ESPR_ITS ---
Documentation for date of: 01/26/25 Subjective Subjective Interval history: Patient seen and examined at bedside. Patient is not requiring IV pain medication for pain management, does have some epigastric tenderness. Patient did have elevated temperature yesterday, Tmax 100.9, will continue to monitor. Patient is currently on IV antibiotics. Patient was evaluated by general surgery, started on clear liquid diet we will monitor response. Yesterday patient's home medications for hypertension lisinopril 20 mg p.o. twice daily, atenolol 50 mg p.o. twice daily, amlodipine 5 mg daily were resumed will continue to monitor. Will continue to monitor. Exam Vital Signs Temp Pulse Resp BP Pulse Ox O2 Del Method 98.6 F 64 16 156/64 H 97 Room Air 01/26/25 08:00 01/26/25 08:46 01/26/25 08:00 01/26/25 08:46 01/26/25 08:00 01/26/25 08:00 Narrative Exam Gen: Well-developed and well-nourished male. HEENT: NCAT, PERRLA, EOMI, MMM, anicteric conjunctivae. CVS: normal S1 and S2. RRR. Loud systolic murmur best heard over left sternal border. Resp: CTA B/L. No rhonchi, rales, crackles or wheezing. Abd: severely tender throughout, non-distended. BS hypoactive. MSK: Good ROM in BUE & BLE. No edema or rash. Brachial iliac bypass graft can be palpated over his right side. Neuro: CN II-XII grossly intact. Strength 5/5 in BUE & BLE. Alert and oriented x3. Psych: appropriate mood and affect. Objective Labs 01/27/25 05:40 01/27/25 05:40 Labs: Laboratory Results - last 24 hr 01/25/25 01/26/25 01/26/25 17:47 01:26 05:10 WBC 5.7 RBC 3.32 L Hgb 10.0 L Hct 29.7 L MCV 90 MCH 30.1 MCHC 33.7 RDW Std Deviation 43.9 Plt Count 140 Neut % (Auto) 65 Lymph % (Auto) 21 [place] % (Auto) 9 Eos % (Auto) 3 Baso % (Auto) 0 Neut # (Auto) 3.7 Lymph # (Auto) 1.2 [place] # (Auto) 0.5 Eos # (Auto) 0.2 Baso # (Auto) 0.0 Immature Gran # (Auto) 0.03 H Absolute Nucleated RBC 0.00 Immature Gran % 1 H Nucleated RBC % 0 PT 12.7 H INR 1.2 APTT 57.6 H D 55.8 H 62.2 H Sodium 140 Potassium 4.0 Chloride 109 H Carbon Dioxide 21.8 Anion Gap 9 BUN 12 Creatinine 0.9 Estim Creat Clear Calc 78.7 eGFR > 60 BUN/Creatinine Ratio 13 Glucose 81 Calculated Osmolality 278 Calcium 8.2 L Corrected Calcium 8.6 Phosphorus 2.4 Magnesium 1.8 Total Bilirubin 0.6 ALT < 7 L Alkaline Phosphatase 48 Total Protein 5.3 L Albumin 3.5 Globulin 1.8 L Albumin/Globulin Ratio 1.9 ABG Interpretation ABG results: 01/23/25 23:05 VBG pH 7.43 VBG pCO2 36 VBG pO2 38 VBG Base Excess 0 Quality Measures Quality Measures VTE prophylaxis Advance care planning discussed with:: patient Assessment & Plan Assessment Current Active Medications: Generic Name Dose Route Start Last Admin Trade Name Freq PRN Reason Stop Dose Admin Amlodipine Besylate 5 mg 01/25/25 15:00 01/26/25 08:46 Amlodipine Besylate 5 Mg Tablet PO 02/24/25 14:59 5 mg QDAY CINDY Administration Atenolol 50 mg 01/25/25 16:15 01/26/25 08:46 Atenolol 25 Mg Tablet PO 02/24/25 16:14 50 mg BID CINDY Administration Sodium Chloride 1,000 mls @ 75 mls/hr 01/24/25 03:15 01/26/25 04:25 Ns IV 02/23/25 03:14 75 mls/hr .[id number] CINDY Administration Cefepime HCl 2 gm/ Sodium 50 mls @ 100 mls/hr 01/24/25 03:15 01/26/25 08:44 Chloride IV 01/31/25 03:14 100 mls/hr Q12HR CINDY Administration Metronidazole 500 mg in 100 mls @ 200 mls/hr 01/24/25 03:15 01/26/25 11:33 Flagyl 500 Mg Iv IV 01/31/25 03:14 200 mls/hr Q6HR CINDY Administration Heparin Sodium/Dextrose 25,000 unit in 250 mls @ 8.274 mls/hr 01/24/25 18:00 01/25/25 21:22 Heparin In D5w Ivpb IV 02/07/25 17:59 14 units/kg/hr .Q24H CINDY 9.652 mls/hr Administration Protocol 12 UNITS/KG/HR Lisinopril 20 mg 01/25/25 15:00 01/26/25 08:46 Lisinopril 20 Mg Tablet PO 02/24/25 14:59 20 mg BID CINDY Administration Ondansetron HCl 4 mg 01/24/25 03:10 01/26/25 11:32 Ondansetron Inj 2 Mg/Ml Inj 2 Ml IVP 02/23/25 03:09 4 mg Q6H PRN Administration NAUSEA OR VOMITING Protocol Pantoprazole Sodium 40 mg 01/24/25 09:00 01/26/25 08:45 Pantoprazole Inj 40 Mg Vial IVP 02/23/25 08:59 40 mg QDAY CINDY Administration Plan Patient is 64 years old male with past medical history of CAD s/p PCI, hypertension, hyperlipidemia, CKD, history of ureteral stent placement, diverticulitis s/p partial colon resection, aortic stenosis s/p brachial iliac bypass graft on Eliquis, mitral valve prolapse, BPH presented to the ED due to worsening abdominal pain and bloody bowel movements, was found to have bowel perforation and was admitted for further management. #Bowel perforation. #History of diverticulosis s/p partial bowel resection. High suspicion of microperforation considering history of diverticulosis - Patient presented with worsening abdominal pain and bloody bowel movements for 4 days. - He previously underwent partial bowel resection due to diverticulosis. - CT chest abdomen pelvis showed free air in the peritoneal cavity, disease consistent with bowel perforation, the site of perforation is indeterminate. - General surgery was consulted in the ED, Dr Martinez recommended admission for further management. - RCRI risk score 2 points, 10.1% risk of major cardiac event, METS greater than 4 Plan: - Continue cefepime and metronidazole IV. - IV tylenol for pain control as he is allergic for most of opioid medications. - Cardiology consulted as patient has underlying complicated cardiac problems. - Eliquis and aspirin on hold. - Started on clear liquid, will assess response for now we will continue NS 75cc/hr. #CAD s/p PCI. #Hyperlipidemia. #Hypertension. #Hx of aortic stenosis s/p brachial iliac bypass graft on Eliquis. #Hx of mitral valve prolapse. - Patient had 3 PCIs and is on aspirin and Eliquis due to brachial iliac bypass graft. Last dose Eliquis 5 mg 01/23/25 in the morning. - He is followed by Dr. Silverman. Dr. Silverman's note reviewed, patient does have a history of occlusion of graft hence will benefit from anticoagulation - Troponin I negative, BNP < 20. EKG showed sinus tachycardia and RBBB. - Patient is on lisinopril 20 mg p.o. twice daily, amlodipine 5 mg p.o. daily and tadalafil 5 mg p.o. daily Plan: - Started on heparin drip per cardiology recommendations - cardiology consulted, appreciate recommendations - hold aspirin and Eliquis. - resumed lisinopril 20 mg p.o. twice daily, atenolol 50 mg p.o. twice daily, amlodipine 5 mg daily #Hx of CKD. #Hx of ureteral stent placement. #Hx of BPH. - Patient had ureteral stent placement by Dr. De La Cruz. - Labs showed Cr 1.5(baseline 1-1.3), BUN 36, eGFR 51. Urinalysis was unremarkable. Plan: - Patient is on tamsulosin 0.4 mg nightly, will resume. - NS 75cc/hr. FEN: Clear liquid diet. DVT prophylaxis: Heparin drip GI prophylaxis: Protonix. Dispo: Telemetry CODE STATUS: Full code. Plan of care discussed with attending Dr. Saldana. Kin Mcnair PGY1. Disclaimer: This note was dictated by speech recognition. Minor errors in sales representative womens health may be present due to voice recognition software. Attending Provider Attestation/Addendum I attest that I was physically present for the evaluation, physical examination, lab and imaging review of the patient with the residents. I discussed the case with the residents and agree with the findings and plans of care as documented above. Tej Saldana MD
[2025-01-26] MEDS: SODIUM CHLORIDE 0.9% 1000 ML 1,000 ML 50 ML IV (18:40)
[2025-01-26] MEDS: TAMSULOSIN HCL 0.4 MG CAPSULE PO (20:31)
--- NOTE | 2025-01-26 23:52 | ESPR_ITS ---
RE: MAXINE ORTEGA : 1960 DATE OF SERVICE: 01/26/2025 SUBJECTIVE: The patient is a 64-year-old male known to have a history of longstanding hypertension, CAD with stent placement, peripheral artery disease, axillary femoral bypass surgery, doing well now. Still has some epigastric discomfort, but abdominal pain improved significantly. Still on conservative medical management. Dr. Martinez is following the patient as well who felt the patient continue to improve, hence will wants conservative management. So far, he is receiving anticoagulation with no problems. No chest pain or shortness of breath. No cardiac symptoms. Blood pressure is now controlled well. He has resumed his blood pressure medications that includes multiple medications. His current blood pressure is still on the high side of 160/70, pulse 64. He has resumed his lisinopril, amlodipine, and atenolol. OBJECTIVE: Vital Signs: Blood pressure 160/72, heart rate 64, respiratory rate 20, temperature normal. Neck: Supple. No JVD or carotid pulses with no bruit. Chest: Symmetrical. Lungs: Clear. Heart: Sound regular. Abdomen: Slight tenderness in the epigastrium noted. Not severe enough to be concerned. Extremities: No edema. Genitourinary and Rectal: Not performed. Neurologic: Unremarkable. DIAGNOSTIC DATA: Cardiac echo shows normal left ventricular function. IMPRESSION: 1. Coronary artery disease, status post stent placement. 2. Severe hypertension. 3. Diverticulitis perforation with pneumoperitoneum managed conservatively. RECOMMENDATIONS: Continue all the current blood pressure medications, monitor for arrhythmias. The patient has failed conservative management. He is improving, though may not require surgery. DT: 23:35:32 TT: 23:50:00 Ref: [id number] - TID: [id number]
[2025-01-27] VITALS (10 sets, daily range): BP systolic 120–165; BP diastolic 40–63; PULSE 57–73; RESP 13–25; TEMP 36.1–37.6; O2SAT 95–98
[2025-01-27] MEDS: ONDANSETRON INJ 2 MG/ML INJ 2 ML 4 MG IVP ×6 (00:19→23:30)
[2025-01-27] MEDS: SODIUM CHLORIDE 0.9% 1000 ML 1,000 ML 50 ML IV (00:19)
[2025-01-27] MEDS: Heparin/D5w 25K 250 ML Ivpb 25,000 UNIT/250 ML BAG 9.652 UNIT IV (00:20)
[2025-01-27] MEDS: metroNIDAZOLE/NS 500 MG IVPB 500 MG/100 ML BAG 200 MG IV ×5 (00:20→23:29)
[2025-01-27 06:23] LABS: Partial Thromboplastin Time 44.9 Seconds (22.0-36.0)
[2025-01-27 06:27] LABS: Phosphorous 2.3 mg/dL (2.4-5.1)
[2025-01-27] MEDS: HEPARIN SOD INJ 5000 UNIT/ML VIAL 2000 UNIT IV ×2 (06:57→20:25)
[2025-01-27 07:03] LABS: Basophils % (Auto) 1 % (0-2.5); Eosinophils # (Auto) 0.1 Thou/mm3 (0.0-0.5); Eosinophils % (Auto) 3 % (0-10); Hematocrit 25.6 % (41.0-53.0); Immature Granulocytes % (Auto) 0 % (0-0); Immature Granulocytes Auto 0.01 Thou/mm3 (0.00-0.00); Lymphocytes # (Auto) 0.9 Thou/mm3 (1.0-4.8); Lymphocytes % (Auto) 21 % (10-50); Mean Corpuscular HGB Conc 35.2 g/dl (31.0-37.0); Mean Corpuscular Hemoglobin 29.8 pg (25.0-35.0); Mean Corpuscular Volume 85 fL (80-100); Monocytes # (Auto) 0.4 Thou/mm3 (0.0-0.8); Monocytes % (Auto) 10 % (0-12); Neutrophils # (Auto) 2.8 Thou/mm3 (1.8-7.7); Neutrophils % (Auto) 65 % (37-80); Nucleated Red Blood Cell % 0 /100 WBC (0); Platelet Count 141 Thou/mm3 (140-440); Red Blood Count 3.02 Miln/mm3 (4.50-5.90); White Blood Count 4.2 Thou/mm3 (3.8-10.6)
[2025-01-27 07:15] LABS: Alanine Aminotransferase < 7 U/L (10-49); Albumin, Serum 3.3 gm/dL (3.4-4.8); Albumin/Globulin Ratio 1.8 (1.2-2.2); Alkaline Phosphatase 44 U/L (46-116); Anion Gap 11 (7-16); BUN/Creatinine Ratio 12 Ratio (12-20); Bilirubin,Total 0.4 mg/dL (0.3-1.2); Blood Urea Nitrogen 12 mg/dL (9-23); Calcium 8.1 mg/dL (8.3-10.6); Calcium (Corrected) 8.7 mg/dL (8.5-10.1); Carbon Dioxide 21.5 mMol/L (20.0-31.0); Chloride 108 mMol/L (98-107); Estimated Creatinine Clearance 70.3 mL/min (>60); Globulin 1.8 gm/dL (2.3-3.5); Glucose 107 mg/dL (74-106); Magnesium 1.8 mg/dL (1.6-2.6); Osmolality,Calculated 279 (275-295); Potassium 3.6 mMol/L (3.4-5.1); Sodium 140 mMol/L (136-145); Total Protein 5.1 gm/dL (5.7-8.2); eGFR > 60 See Note
[2025-01-27] MEDS: atenoloL 25 MG TABLET 50 MG PO ×2 (08:37→20:28)
[2025-01-27] MEDS: CEFEPIME INJ 2 GM in SODIUM CHLORIDE 0.9% (Popper) 50 ML IV ×2 (08:37→20:28)
[2025-01-27] MEDS: PANTOPRAZOLE INJ 40 MG VIAL IVP (08:37)
[2025-01-27] MEDS: Lisinopril 20 MG TABLET PO ×2 (08:38→20:28)
--- NOTE | 2025-01-27 11:23 | ESPR_ITS ---
Documentation for date of: 01/27/25 Subjective Subjective Interval history: Patient seen and examined at bedside. Patient's diet was advanced to full liquid by general surgery today. Does complain of on and off abdominal pain, left upper quadrant and epigastric region. Patient's amlodipine was held this morning, blood pressure soft Will continue heparin drip. General surgery following, will monitor closely Exam Vital Signs Temp Pulse Resp BP Pulse Ox O2 Del Method 97.7 F 65 18 135/53 H 97 Room Air 01/27/25 08:00 01/27/25 08:38 01/27/25 08:00 01/27/25 08:38 01/27/25 08:00 01/27/25 08:00 Narrative Exam Gen: Well-developed and well-nourished male. HEENT: NCAT, PERRLA, EOMI, MMM, anicteric conjunctivae. CVS: normal S1 and S2. RRR. Loud systolic murmur best heard over left sternal border. Resp: CTA B/L. No rhonchi, rales, crackles or wheezing. Abd: Mild tender left upper quadrant and epigastrium, non-distended. BS hypoactive. MSK: Good ROM in BUE & BLE. No edema or rash. Brachial iliac bypass graft can be palpated over his right side. Neuro: CN II-XII grossly intact. Strength 5/5 in BUE & BLE. Alert and oriented x3. Psych: appropriate mood and affect. Objective Labs 01/27/25 05:40 01/27/25 05:40 Labs: Laboratory Results - last 24 hr 01/27/25 01/27/25 05:40 05:45 WBC 4.2 RBC 3.02 L Hgb 9.0 L Hct 25.6 L MCV 85 MCH 29.8 MCHC 35.2 RDW Std Deviation 42.0 Plt Count 141 Neut % (Auto) 65 Lymph % (Auto) 21 [place] % (Auto) 10 Eos % (Auto) 3 Baso % (Auto) 1 Neut # (Auto) 2.8 Lymph # (Auto) 0.9 L [place] # (Auto) 0.4 Eos # (Auto) 0.1 Baso # (Auto) 0.0 Immature Gran # (Auto) 0.01 H Absolute Nucleated RBC 0.00 Immature Gran % 0 Nucleated RBC % 0 APTT 44.9 H D Sodium 140 Potassium 3.6 Chloride 108 H Carbon Dioxide 21.5 Anion Gap 11 BUN 12 Creatinine 1.0 Estim Creat Clear Calc 70.3 eGFR > 60 BUN/Creatinine Ratio 12 Glucose 107 H Calculated Osmolality 279 Calcium 8.1 L Corrected Calcium 8.7 Phosphorus 2.3 L Magnesium 1.8 Total Bilirubin 0.4 ALT < 7 L Alkaline Phosphatase 44 L Total Protein 5.1 L Albumin 3.3 L Globulin 1.8 L Albumin/Globulin Ratio 1.8 ABG Interpretation ABG results: 01/23/25 23:05 VBG pH 7.43 VBG pCO2 36 VBG pO2 38 VBG Base Excess 0 Quality Measures Quality Measures VTE prophylaxis Advance care planning discussed with:: patient Assessment & Plan Assessment Current Active Medications: Generic Name Dose Route Start Last Admin Trade Name Freq PRN Reason Stop Dose Admin Amlodipine Besylate 5 mg 01/25/25 15:00 01/27/25 08:31 Amlodipine Besylate 5 Mg Tablet PO 02/24/25 14:59 Not Given QDAY CINDY Atenolol 50 mg 01/25/25 16:15 01/27/25 08:37 Atenolol 25 Mg Tablet PO 02/24/25 16:14 50 mg BID CINDY Administration Cefepime HCl 2 gm/ Sodium 50 mls @ 100 mls/hr 01/24/25 03:15 01/27/25 08:37 Chloride IV 01/31/25 03:14 100 mls/hr Q12HR CINDY Administration Metronidazole 500 mg in 100 mls @ 200 mls/hr 01/24/25 03:15 01/27/25 05:53 Flagyl 500 Mg Iv IV 01/31/25 03:14 200 mls/hr Q6HR CINDY Administration Heparin Sodium/Dextrose 25,000 unit in 250 mls @ 8.274 mls/hr 01/24/25 18:00 01/27/25 06:57 Heparin In D5w Ivpb IV 02/07/25 17:59 16 units/kg/hr .Q24H CINDY 11.031 mls/hr Titration Protocol 12 UNITS/KG/HR Lisinopril 20 mg 01/25/25 15:00 01/27/25 08:38 Lisinopril 20 Mg Tablet PO 02/24/25 14:59 20 mg BID CINDY Administration Ondansetron HCl 4 mg 01/24/25 03:10 01/27/25 05:53 Ondansetron Inj 2 Mg/Ml Inj 2 Ml IVP 02/23/25 03:09 4 mg Q6H PRN Administration NAUSEA OR VOMITING Protocol Pantoprazole Sodium 40 mg 01/24/25 09:00 01/27/25 08:37 Pantoprazole Inj 40 Mg Vial IVP 02/23/25 08:59 40 mg QDAY CINDY Administration Tamsulosin HCl 0.4 mg 01/26/25 21:00 01/26/25 20:31 Tamsulosin Hcl 0.4 Mg Capsule PO 02/25/25 20:59 0.4 mg HS CINDY Administration Plan Patient is 64 years old male with past medical history of CAD s/p PCI, hypertension, hyperlipidemia, CKD, history of ureteral stent placement, diverticulitis s/p partial colon resection, aortic stenosis s/p brachial iliac bypass graft on Eliquis, mitral valve prolapse, BPH presented to the ED due to worsening abdominal pain and bloody bowel movements, was found to have bowel perforation and was admitted for further management. #Bowel perforation. #History of diverticulosis s/p partial bowel resection. High suspicion of microperforation considering history of diverticulosis - Patient presented with worsening abdominal pain and bloody bowel movements for 4 days. - He previously underwent partial bowel resection due to diverticulosis. - CT chest abdomen pelvis showed free air in the peritoneal cavity, disease consistent with bowel perforation, the site of perforation is indeterminate. - General surgery was consulted in the ED, Dr Martinez recommended admission for further management. - RCRI risk score 2 points, 10.1% risk of major cardiac event, METS greater than 4 Plan: - Continue cefepime and metronidazole IV. - IV tylenol for pain control as he is allergic for most of opioid medications. - Cardiology consulted as patient has underlying complicated cardiac problems. - Eliquis and aspirin on hold. - Diet advanced to full liquid #CAD s/p PCI. #Hyperlipidemia. #Hypertension. #Hx of aortic stenosis s/p brachial iliac bypass graft on Eliquis. #Hx of mitral valve prolapse. - Patient had 3 PCIs and is on aspirin and Eliquis due to brachial iliac bypass graft. Last dose Eliquis 5 mg 01/23/25 in the morning. - He is followed by Dr. Silverman. Dr. Silverman's note reviewed, patient does have a history of occlusion of graft hence will benefit from anticoagulation - Troponin I negative, BNP < 20. EKG showed sinus tachycardia and RBBB. - Patient is on lisinopril 20 mg p.o. twice daily, amlodipine 5 mg p.o. daily and tadalafil 5 mg p.o. daily Plan: - Started on heparin drip per cardiology recommendations - cardiology consulted, appreciate recommendations - hold aspirin and Eliquis. - resumed lisinopril 20 mg p.o. twice daily, atenolol 50 mg p.o. twice daily, amlodipine 5 mg daily #Hx of CKD. #Hx of ureteral stent placement. #Hx of BPH. - Patient had ureteral stent placement by Dr. De La Cruz. - Labs showed Cr 1.5(baseline 1-1.3), BUN 36, eGFR 51. Urinalysis was unremarkable. Plan: - Patient is on tamsulosin 0.4 mg nightly, will resume. - NS 75cc/hr. FEN: Clear liquid diet. DVT prophylaxis: Heparin drip GI prophylaxis: Protonix. Dispo: Telemetry CODE STATUS: Full code. Plan of care discussed with attending Dr. Saldana. Kin Mcnair PGY1. Disclaimer: This note was dictated by speech recognition. Minor errors in hydroelectric mechanic may be present due to voice recognition software. Attending Provider Attestation/Addendum I attest that I was physically present for the evaluation, physical examination, lab and imaging review of the patient with the residents. I discussed the case with the residents and agree with the findings and plans of care as documented above. At bedside today, patient stated he was tired because she could not get enough sleep. We will try to avoid interruption and start him on melatonin to aid with sleep. His abdominal pain has been improving. Also has decreasing tenderness on examination. Has been able to ambulate well. Tolerated clear liquid diet. General surgery following closely, diet has been advanced to full liquid, appreciate recommendations. We will continue with broad-spectrum antibiotics. Culture results have been negative, WBC count has been downtrending, vitals are stable except for hypertension. Electrolytes repleted as needed. Tej Saldana MD
[2025-01-27 13:35] LABS: Partial Thromboplastin Time 87.4 Seconds (22.0-36.0)
--- NOTE | 2025-01-27 13:52 | PD.SURPROG ---
Documentation for date of: 01/27/25 Subjective Subjective Narrative: Patient is seen and examined. He is tolerating liquids without nausea or vomiting. He had multiple bowel movements yesterday. His pain continues to improve Exam Vital Signs Temp Pulse Resp BP Pulse Ox O2 Del Method 97.4 F 71 21 H 120/40 L 96 Room Air 01/27/25 12:00 01/27/25 12:00 01/27/25 12:00 01/27/25 12:00 01/27/25 12:00 01/27/25 12:00 Constitutional Constitutional: no acute distress Routine Abdominal Exam Comments: Abdomen is soft and nondistended. He has minimal tenderness to deep palpation of the left mid abdomen, no rebound tenderness or peritonitis at this time Assessment & Plan Assessment Additional comments: Pneumoperitoneum likely from perforated diverticulitis, clinically improving Plan Continue IV antibiotics. Will advance to full liquids
--- NOTE | 2025-01-27 17:06 | PC.NURSE ---
at [address] Guerrero, patient okay to have diet per VIDEO EDITOR recommendations, MD made aware of patients intermittent bigeminy and patient feeling of not able to breath, pt RR at 35-40, oxygen sat. 95% on 4L oxygen, no orders at this time
[2025-01-27 19:50] LABS: Partial Thromboplastin Time 48.5 Seconds (22.0-36.0)
[2025-01-27] MEDS: TAMSULOSIN HCL 0.4 MG CAPSULE PO (20:27)
--- NOTE | 2025-01-27 22:12 | ESPR_ITS ---
RE: JUAN MANUEL HUGHES : 1960 DATE OF SERVICE: 01/27/2025 Juan Manuel Hughes is a 64-year-old male with a history of CAD, stent placement to LAD, vascular disease, axillary fem bypass graft, who came to the hospital with diverticulitis, perforation, pneumoperitoneum. Conservatively managed. Able to do soft diet today. Taking blood pressure medications, controlled well. Does not have any chest pain or shortness of breath. OBJECTIVE: Vital Signs: His blood pressure is 138/64, pulse 82. Neck: Supple. No JVD. Lungs: Decreased breath sounds. No rales or rhonchi. Heart: S1, S2 regular. Abdomen: Thin and soft. Extremities: No edema. The bypass graft, axillary femoral graft, appears to be patent. Thrill is present. IMPRESSION/ASSESSMENT: 1. Diverticulitis with perforation and pneumoperitoneum, managed conservatively. 2. Peripheral artery disease, axillary femoral graft. 3. Hypertension, stable. 4. Known coronary artery disease with stent placement in the left anterior descending artery, stable. RECOMMENDATIONS: Continue current regimen. Keep the blood pressure management closely. Cardiac-brooks stable for now. DT: 21:37:47 TT: 22:10:00 Ref: [id number] - TID: [id number]
[2025-01-27] MEDS: MELATONIN 3 MG TABLET PO (23:30)
[2025-01-27] MEDS: Heparin/D5w 25K 250 ML Ivpb 25,000 UNIT/250 ML BAG 11.031 UNIT IV (23:32)
[2025-01-28] VITALS (9 sets, daily range): BP systolic 140–169; BP diastolic 52–67; PULSE 57–70; RESP 17–18; TEMP 36.2–36.9; O2SAT 96–98
[2025-01-28 02:50] LABS: Basophils % (Auto) 1 % (0-2.5); Eosinophils # (Auto) 0.1 Thou/mm3 (0.0-0.5); Eosinophils % (Auto) 4 % (0-10); Hematocrit 25.8 % (41.0-53.0); Immature Granulocytes % (Auto) 0 % (0-0); Immature Granulocytes Auto 0.01 Thou/mm3 (0.00-0.00); Lymphocytes % (Auto) 29 % (10-50); Mean Corpuscular HGB Conc 33.3 g/dl (31.0-37.0); Mean Corpuscular Hemoglobin 29.6 pg (25.0-35.0); Mean Corpuscular Volume 89 fL (80-100); Monocytes # (Auto) 0.5 Thou/mm3 (0.0-0.8); Monocytes % (Auto) 13 % (0-12); Neutrophils # (Auto) 1.9 Thou/mm3 (1.8-7.7); Neutrophils % (Auto) 53 % (37-80); Nucleated Red Blood Cell % 0 /100 WBC (0); Platelet Count 119 Thou/mm3 (140-440); RDW Standard Deviation 43.2 fL (35.1-43.9); Red Blood Count 2.91 Miln/mm3 (4.50-5.90); White Blood Count 3.5 Thou/mm3 (3.8-10.6)
[2025-01-28 02:52] LABS: Hemoglobin 8.6 g/dL (13.5-16.0)
[2025-01-28 03:18] LABS: Alanine Aminotransferase 8 U/L (10-49); Albumin, Serum 3.2 gm/dL (3.4-4.8); Albumin/Globulin Ratio 1.8 (1.2-2.2); Alkaline Phosphatase 43 U/L (46-116); Anion Gap 9 (7-16); BUN/Creatinine Ratio 10 Ratio (12-20); Bilirubin,Total 0.3 mg/dL (0.3-1.2); Blood Urea Nitrogen 10 mg/dL (9-23); Calcium 8.1 mg/dL (8.3-10.6); Calcium (Corrected) 8.7 mg/dL (8.5-10.1); Carbon Dioxide 23.3 mMol/L (20.0-31.0); Chloride 109 mMol/L (98-107); Estimated Creatinine Clearance 70.3 mL/min (>60); Globulin 1.8 gm/dL (2.3-3.5); Glucose 119 mg/dL (74-106); Osmolality,Calculated 281 (275-295); Potassium 3.6 mMol/L (3.4-5.1); Sodium 141 mMol/L (136-145); eGFR > 60 See Note
[2025-01-28 03:23] LABS: Partial Thromboplastin Time 135.2 Seconds (22.0-36.0)
[2025-01-28] MEDS: ONDANSETRON INJ 2 MG/ML INJ 2 ML 4 MG IVP ×3 (05:59→21:09)
[2025-01-28] MEDS: metroNIDAZOLE/NS 500 MG IVPB 500 MG/100 ML BAG 200 MG IV ×3 (05:59→21:09)
[2025-01-28] MEDS: PANTOPRAZOLE INJ 40 MG VIAL IVP (09:08)
[2025-01-28] MEDS: CEFEPIME INJ 2 GM in SODIUM CHLORIDE 0.9% (Popper) 50 ML IV ×2 (09:08→20:29)
[2025-01-28] MEDS: Lisinopril 20 MG TABLET PO ×2 (09:10→20:29)
[2025-01-28] MEDS: amLODIPine BESYLATE 5 MG TABLET PO (09:10)
[2025-01-28] MEDS: atenoloL 25 MG TABLET 50 MG PO ×2 (09:10→20:28)
--- NOTE | 2025-01-28 10:09 | PC.SS ---
Follow up note: Pt is on full diet. Advance diet as tolerated. Dr. Martinez is consulting. Pt will return home upon dc.
[2025-01-28 10:56] LABS: Partial Thromboplastin Time 58.3 Seconds (22.0-36.0)
--- NOTE | 2025-01-28 11:40 | ESPR_ITS ---
<Statement entered by Crys Rodriguez MD - 02/06/25 14:58> I reviewed above note and agree with findings and plans. I have also personally examined the patient with medicine team and went over assessment and plan with medical team including trestle mainternance laborer and resident physician. Documentation for date of: 01/28/25 Subjective Subjective Interval history: Patient seen and examined at bedside. Patient has improved symptoms, denies any abdominal pain, minimal abdominal tenderness noted on physical exam. Patient is tolerating full liquid diet well, will be started on low fiber diet, discussed with general surgery. Will continue to monitor for 24 hours, anticipate discharge in a.m. on oral antibiotics if patient is stable. Exam Vital Signs Temp Pulse Resp BP Pulse Ox O2 Del Method 97.2 F 62 18 153/63 H 97 Room Air 01/28/25 08:00 01/28/25 09:10 01/28/25 08:00 01/28/25 09:10 01/28/25 04:00 01/28/25 04:00 Narrative Exam Gen: Well-developed and well-nourished male. HEENT: NCAT, PERRLA, EOMI, MMM, anicteric conjunctivae. CVS: normal S1 and S2. RRR. Loud systolic murmur best heard over left sternal border. Resp: CTA B/L. No rhonchi, rales, crackles or wheezing. Abd: Minimal tender left upper quadrant and epigastrium, non-distended. BS hypoactive. MSK: Good ROM in BUE & BLE. No edema or rash. Brachial iliac bypass graft can be palpated over his right side. Neuro: CN II-XII grossly intact. Strength 5/5 in BUE & BLE. Alert and oriented x3. Psych: appropriate mood and affect. Objective Labs 01/28/25 02:40 01/28/25 02:40 Labs: Laboratory Results - last 24 hr 01/27/25 01/27/25 01/28/25 12:57 19:03 02:40 WBC 3.5 L RBC 2.91 L Hgb 8.6 L Hct 25.8 L MCV 89 MCH 29.6 MCHC 33.3 RDW Std Deviation 43.2 Plt Count 119 L Neut % (Auto) 53 Lymph % (Auto) 29 [place] % (Auto) 13 H Eos % (Auto) 4 Baso % (Auto) 1 Neut # (Auto) 1.9 Lymph # (Auto) 1.0 [place] # (Auto) 0.5 Eos # (Auto) 0.1 Baso # (Auto) 0.0 Immature Gran # (Auto) 0.01 H Absolute Nucleated RBC 0.00 Immature Gran % 0 Nucleated RBC % 0 APTT 87.4 H D 48.5 H D 135.2 H* D Sodium 141 Potassium 3.6 Chloride 109 H Carbon Dioxide 23.3 Anion Gap 9 BUN 10 Creatinine 1.0 Estim Creat Clear Calc 70.3 eGFR > 60 BUN/Creatinine Ratio 10 L Glucose 119 H Calculated Osmolality 281 Calcium 8.1 L Corrected Calcium 8.7 Total Bilirubin 0.3 ALT 8 L Alkaline Phosphatase 43 L Total Protein 5.0 L Albumin 3.2 L Globulin 1.8 L Albumin/Globulin Ratio 1.8 01/28/25 10:20 WBC RBC Hgb Hct MCV MCH MCHC RDW Std Deviation Plt Count Neut % (Auto) Lymph % (Auto) [place] % (Auto) Eos % (Auto) Baso % (Auto) Neut # (Auto) Lymph # (Auto) [place] # (Auto) Eos # (Auto) Baso # (Auto) Immature Gran # (Auto) Absolute Nucleated RBC Immature Gran % Nucleated RBC % APTT 58.3 H D Sodium Potassium Chloride Carbon Dioxide Anion Gap BUN Creatinine Estim Creat Clear Calc eGFR BUN/Creatinine Ratio Glucose Calculated Osmolality Calcium Corrected Calcium Total Bilirubin ALT Alkaline Phosphatase Total Protein Albumin Globulin Albumin/Globulin Ratio ABG Interpretation ABG results: 01/23/25 23:05 VBG pH 7.43 VBG pCO2 36 VBG pO2 38 VBG Base Excess 0 Quality Measures Quality Measures VTE prophylaxis Advance care planning discussed with:: patient Assessment & Plan Assessment Current Active Medications: Generic Name Dose Route Start Last Admin Trade Name Freq PRN Reason Stop Dose Admin Amlodipine Besylate 5 mg 01/25/25 15:00 01/28/25 09:10 Amlodipine Besylate 5 Mg Tablet PO 02/24/25 14:59 5 mg QDAY CINDY Administration Atenolol 50 mg 01/25/25 16:15 01/28/25 09:10 Atenolol 25 Mg Tablet PO 02/24/25 16:14 50 mg BID CINDY Administration Cefepime HCl 2 gm/ Sodium 50 mls @ 100 mls/hr 01/24/25 03:15 01/28/25 09:08 Chloride IV 01/31/25 03:14 100 mls/hr Q12HR CINDY Administration Metronidazole 500 mg in 100 mls @ 200 mls/hr 01/24/25 03:15 01/28/25 05:59 Flagyl 500 Mg Iv IV 01/31/25 03:14 200 mls/hr Q6HR CINDY Administration Heparin Sodium/Dextrose 25,000 unit in 250 mls @ 8.274 mls/hr 01/24/25 18:00 01/28/25 04:30 Heparin In D5w Ivpb IV 02/07/25 17:59 13 units/kg/hr .Q24H CINDY 8.963 mls/hr Titration Protocol 12 UNITS/KG/HR Lisinopril 20 mg 01/25/25 15:00 01/28/25 09:10 Lisinopril 20 Mg Tablet PO 02/24/25 14:59 20 mg BID CINDY Administration Ondansetron HCl 4 mg 01/24/25 03:10 01/28/25 05:59 Ondansetron Inj 2 Mg/Ml Inj 2 Ml IVP 02/23/25 03:09 4 mg Q6H PRN Administration NAUSEA OR VOMITING Protocol Pantoprazole Sodium 40 mg 01/29/25 09:00 Pantoprazole 40 Mg Tablet PO 02/28/25 08:59 QDAY CINDY Protocol Tamsulosin HCl 0.4 mg 01/26/25 21:00 01/27/25 20:27 Tamsulosin Hcl 0.4 Mg Capsule PO 02/25/25 20:59 0.4 mg HS CINDY Administration Plan Patient is 64 years old male with past medical history of CAD s/p PCI, hypertension, hyperlipidemia, CKD, history of ureteral stent placement, diverticulitis s/p partial colon resection, aortic stenosis s/p brachial iliac bypass graft on Eliquis, mitral valve prolapse, BPH presented to the ED due to worsening abdominal pain and bloody bowel movements, was found to have bowel perforation and was admitted for further management. #Bowel perforation. #History of diverticulosis s/p partial bowel resection. High suspicion of microperforation considering history of diverticulosis - Patient presented with worsening abdominal pain and bloody bowel movements for 4 days. - He previously underwent partial bowel resection due to diverticulosis. - CT chest abdomen pelvis showed free air in the peritoneal cavity, disease consistent with bowel perforation, the site of perforation is indeterminate. - General surgery was consulted in the ED, Dr Martinez recommended admission for further management. - RCRI risk score 2 points, 10.1% risk of major cardiac event, METS greater than 4 Plan: - Continue cefepime and metronidazole IV. - IV tylenol for pain control as he is allergic for most of opioid medications. - Cardiology consulted as patient has underlying complicated cardiac problems. - Eliquis and aspirin on hold, Will resume on discharge. - Diet advanced to low fiber. - Patient does have colon wall thickening, will advise outpatient colonoscopy at a later stage. #CAD s/p PCI. #Hyperlipidemia. #Hypertension. #Hx of aortic stenosis s/p brachial iliac bypass graft on Eliquis. #Hx of mitral valve prolapse. - Patient had 3 PCIs and is on aspirin and Eliquis due to brachial iliac bypass graft. Last dose Eliquis 5 mg 01/23/25 in the morning. - He is followed by Dr. Silverman. Dr. Silverman's note reviewed, patient does have a history of occlusion of graft hence will benefit from anticoagulation - Troponin I negative, BNP < 20. EKG showed sinus tachycardia and RBBB. - Patient is on lisinopril 20 mg p.o. twice daily, amlodipine 5 mg p.o. daily and tadalafil 5 mg p.o. daily Plan: - Started on heparin drip per cardiology recommendations, continue - cardiology consulted, appreciate recommendations - hold aspirin and Eliquis. - resumed lisinopril 20 mg p.o. twice daily, atenolol 50 mg p.o. twice daily, amlodipine 5 mg daily #Hx of CKD. #Hx of ureteral stent placement. #Hx of BPH. - Patient had ureteral stent placement by Dr. De La Cruz. - Labs showed Cr 1.5(baseline 1-1.3), BUN 36, eGFR 51. Urinalysis was unremarkable. Plan: - Patient is on tamsulosin 0.4 mg nightly, will resume. FEN: Low fiber diet DVT prophylaxis: Heparin drip GI prophylaxis: Protonix. Dispo: Telemetry CODE STATUS: Full code. Plan of care discussed with attending Dr. Rodriguez. Kin Mcnair PGY1. Disclaimer: This note was dictated by speech recognition. Minor errors in boiler mechanic may be present due to voice recognition software.
--- NOTE | 2025-01-28 11:56 | PD.SURPROG ---
Documentation for date of: 01/28/25 Subjective Subjective Narrative: Patient is seen and examined. His pain is improving. He is tolerating full liquids without nausea or vomiting and having bowel movements Exam Vital Signs Temp Pulse Resp BP Pulse Ox O2 Del Method 97.2 F 62 18 153/63 H 97 Room Air 01/28/25 08:00 01/28/25 09:10 01/28/25 08:00 01/28/25 09:10 01/28/25 04:00 01/28/25 04:00 Constitutional Constitutional: no acute distress Routine Abdominal Exam Comments: Abdomen is soft and nondistended. He has very minimal tenderness to deep palpation over left side of the abdomen, no rebound tenderness or peritonitis at this time Assessment & Plan Assessment Additional comments: Pneumoperitoneum likely from perforated diverticulitis, clinically improving Plan Continue IV antibiotics. Will advance to low residue diet. If he is tolerating diet and continues to improve clinically he may be discharged on additional 10 days of oral antibiotics tomorrow.
[2025-01-28 16:03] LABS: Partial Thromboplastin Time 52.9 Seconds (22.0-36.0)
[2025-01-28] MEDS: TAMSULOSIN HCL 0.4 MG CAPSULE PO (20:29)
[2025-01-28 21:57] LABS: Partial Thromboplastin Time 52.3 Seconds (22.0-36.0)
[2025-01-28] MEDS: Heparin/D5w 25K 250 ML Ivpb 25,000 UNIT/250 ML BAG 8.963 UNIT IV (23:47)
[2025-01-29] VITALS (7 sets, daily range): BP systolic 143–170; BP diastolic 47–74; PULSE 52–67; RESP 15–19; TEMP 36.4–37.1; O2SAT 97–99
--- NOTE | 2025-01-29 00:55 | ESPR_ITS ---
RE: JUAN MANUEL HUGHES : 1960 DATE OF SERVICE: 01/28/2025 SUBJECTIVE: Juan Manuel Hughes is a 64-year-old male with a history of hypertension, non-CAD, stent placement in LAD and history of vascular disease. Admitted to the hospital with GI problems, mostly diverticulitis, perforation, followed by Dr. Martinez. So far, conservative management appears to be working. Abdominal pain has improved. In fact, he is feeling better. He does not complain of any shortness of breath or chest pain. Blood pressure medication has been resumed. OBJECTIVE: Vital Signs: His blood pressure is slightly elevated today at 150/70 mmHg, pulse rate is 62, respirations 18. HEENT: Head is atraumatic. Neck: Supple. Lungs: Decreased breath sounds. No rales or rhonchi. Heart: S1 and S2 regular. S4 gallop heard. Abdomen: Thin and soft. Extremities: Mild edema. /Rectal: Not performed. CORPORATE ANALYST: Normal. Vascular: Exam showed that the axillofemoral graft appears to be patent. RECOMMENDATIONS: The patient will be continued on heparin drip. If Dr. Martinez decides definitely not to have surgery, we can change it to Eliquis. Otherwise, the patient is clinically stable. Blood pressure is controlled well. No angina symptoms. DT: 23:27:05 TT: 00:51:00 Ref: [id number] - TID: [id number]
[2025-01-29] MEDS: metroNIDAZOLE/NS 500 MG IVPB 500 MG/100 ML BAG 200 MG IV (05:20)
[2025-01-29] MEDS: ONDANSETRON INJ 2 MG/ML INJ 2 ML 4 MG IVP (05:28)
[2025-01-29 06:29] LABS: Basophils % (Auto) 1 % (0-2.5); Eosinophils # (Auto) 0.1 Thou/mm3 (0.0-0.5); Eosinophils % (Auto) 3 % (0-10); Hematocrit 25.9 % (41.0-53.0); Immature Granulocytes % (Auto) 0 % (0-0); Immature Granulocytes Auto 0.01 Thou/mm3 (0.00-0.00); Lymphocytes % (Auto) 30 % (10-50); Mean Corpuscular HGB Conc 34.7 g/dl (31.0-37.0); Mean Corpuscular Hemoglobin 29.5 pg (25.0-35.0); Mean Corpuscular Volume 85 fL (80-100); Monocytes # (Auto) 0.4 Thou/mm3 (0.0-0.8); Monocytes % (Auto) 11 % (0-12); Neutrophils # (Auto) 1.8 Thou/mm3 (1.8-7.7); Neutrophils % (Auto) 55 % (37-80); Nucleated Red Blood Cell % 0 /100 WBC (0); Platelet Count 129 Thou/mm3 (140-440); RDW Standard Deviation 39.9 fL (35.1-43.9); Red Blood Count 3.05 Miln/mm3 (4.50-5.90); White Blood Count 3.4 Thou/mm3 (3.8-10.6)
--- NOTE | 2025-01-29 06:45 | PC.NURSE ---
patient 0500 ptt has not came back at this time.
[2025-01-29 06:48] LABS: Alanine Aminotransferase 12 U/L (10-49); Albumin, Serum 3.5 gm/dL (3.4-4.8); Albumin/Globulin Ratio 2.1 (1.2-2.2); Alkaline Phosphatase 43 U/L (46-116); Anion Gap 11 (7-16); BUN/Creatinine Ratio 8 Ratio (12-20); Bilirubin,Total 0.3 mg/dL (0.3-1.2); Blood Urea Nitrogen 8 mg/dL (9-23); Calcium 8.2 mg/dL (8.3-10.6); Calcium (Corrected) 8.6 mg/dL (8.5-10.1); Carbon Dioxide 25.2 mMol/L (20.0-31.0); Chloride 107 mMol/L (98-107); Estimated Creatinine Clearance 70.3 mL/min (>60); Globulin 1.7 gm/dL (2.3-3.5); Glucose 111 mg/dL (74-106); Osmolality,Calculated 284 (275-295); Potassium 3.4 mMol/L (3.4-5.1); Sodium 143 mMol/L (136-145); Total Protein 5.2 gm/dL (5.7-8.2); eGFR > 60 See Note
[2025-01-29 06:57] LABS: Partial Thromboplastin Time 69.6 Seconds (22.0-36.0)
[2025-01-29] MEDS: CEFEPIME INJ 2 GM in SODIUM CHLORIDE 0.9% (Popper) 50 ML IV (08:17)
[2025-01-29] MEDS: POTASSIUM CHLORIDE 10% 20 MEQ/15 ML UDC 40 MEQ PO (08:17)
[2025-01-29] MEDS: atenoloL 25 MG TABLET 50 MG PO (08:18)
[2025-01-29] MEDS: amLODIPine BESYLATE 5 MG TABLET PO (08:19)
[2025-01-29] MEDS: Lisinopril 20 MG TABLET PO (08:19)
[2025-01-29] MEDS: PANTOPRAZOLE 40 MG TABLET PO (08:19)
--- NOTE | 2025-01-29 12:19 | PD.SURPROG ---
Documentation for date of: 01/29/25 Subjective Subjective Narrative: Patient is seen and examined. His pain is improving. He is tolerating diet and having bowel movements Exam Vital Signs Temp Pulse Resp BP Pulse Ox O2 Del Method 97.6 F 56 L 18 143/68 H 98 Room Air 01/29/25 08:00 01/29/25 12:00 01/29/25 08:00 01/29/25 08:19 01/29/25 08:00 01/29/25 08:00 Constitutional Constitutional: no acute distress Routine Abdominal Exam Comments: Abdomen soft and nondistended. No significant tenderness at this time Assessment & Plan Assessment Additional comments: Pneumoperitoneum from likely perforated diverticulitis, symptoms resolved Plan May discharge home on oral antibiotics for 10 days. Follow-up with primary care physician. May resume Eliquis
--- NOTE | 2025-01-29 13:12 | ESDS_ITS ---
<Statement entered by Crys Rodriguez MD - 02/10/25 08:54> I reviewed above note and agree with findings and plans. I have also personally examined the patient with medicine team and went over assessment and plan with medical team including production internship and resident physician. Planned Discharge Date 01/29/25 DS: Providers Provider Date of admission: 01/24/25 03:10 Primary care physician: Janey Figueroa MD Admitting Provider: Casper Bolton MD Attending Provider on Admission: Crys Rodriguez MD Consults: 01/24/25 02:47 Consult to General Surgery Stat Comment: bowel obstruction Consulting Provider: Jason Martinez 01/24/25 03:13 Consult to Cardiology Routine Comment: cardiac clearance Consulting Provider: Husam Silverman Attending Provider on DC: Crys Rodriguez MD Discharging Provider: Crys Rodriguez MD Anticipated date of discharge: 01/29/25 DS: Diagnosis Problem List Completed Was Problem List Reviewed/Reconciled?: Yes Hospital Course Hospital Course Hospital course: Hospital Course: Mr. Hughes is a 64-year-old male with past medical history of CAD s/p PCI, hypertension, hyperlipidemia, CKD, history of ureteral stent placement, diverticulitis s/p partial colon resection, aortic stenosis s/p brachial iliac bypass graft on Eliquis, mitral valve prolapse, BPH presented to the ED due to worsening abdominal pain and bloody bowel movements, on presentation patient CT abdomen pelvis showed free air in the peritoneal cavity, disease consistent with bowel perforation, general surgery consulted in the ED and patient was admitted to the hospital for further workup. Decision was made to start patient on conservative management with IV antibiotics and IV fluids, patient was kept n .p.o. was monitored closely, anticoagulation was held and cardiology was consulted for further recommendations. Considering patient had a brachial like bypass graft with history of clot in the past, will started on heparin drip per cardiology recommendations. With the progression of hospital course patient was started on clear liquid diet was gradually advanced to full liquid and eventually to low-fat diet. Patient's home medications were resumed for blood pressure management, patient tolerated low-fat diet well patient's abdominal pain resolved, did have bowel movements during the hospitalization, no demetrio blood noted. Further plan is to discharge patient home and follow-up outpatient with primary care physician in 1 week, patient to follow-up outpatient with gastroenterology, recommended to obtain colonoscopy in 6 to 8 weeks. Patient to continue p.o. antibiotics for 10 days, resume Eliquis and continue all other home medications. Patient is stable for discharge, patient responded well to hospital treatment. Discharge Diagnosis: #Bowel perforation, suspicion of microperforation in setting of diverticulitis #Diverticulitis #History of diverticulosis s/p partial bowel resection. #CAD s/p PCI. #Hyperlipidemia. #Hypertension. #Hx of aortic stenosis s/p brachial iliac bypass graft on Eliquis. #Hx of mitral valve prolapse. #Hx of CKD. #Hx of ureteral stent placement. #Hx of BPH. Case discussed with Attending Dr. Rodriguez. Kin Mcnair PGY1 Disclaimer: This note was dictated by speech recognition. Minor errors in signalman may be present due to voice recognition software. Status at Discharge Functional status at discharge: independent ambulation Overall status at discharge: patient is progressing back to baseline Time Spent with Patient Time attestation: Total time spent providing and/or coordinating discharge services: Time spent: Greater than 30 minutes Exam Vital Signs Temp Pulse Resp BP Pulse Ox O2 Del Method 97.6 F 56 L 18 143/68 H 98 Room Air 01/29/25 08:00 01/29/25 12:00 01/29/25 08:00 01/29/25 08:19 01/29/25 08:00 01/29/25 08:00 Narrative Exam Gen: Well-developed and well-nourished male. HEENT: NCAT, PERRLA, EOMI, MMM, anicteric conjunctivae. CVS: normal S1 and S2. RRR. Loud systolic murmur best heard over left sternal border. Resp: CTA B/L. No rhonchi, rales, crackles or wheezing. Abd: Minimal tender left upper quadrant and epigastrium, non-distended. BS hypoactive. MSK: Good ROM in BUE & BLE. No edema or rash. Brachial iliac bypass graft can be palpated over his right side. Neuro: CN II-XII grossly intact. Strength 5/5 in BUE & BLE. Alert and oriented x3. Psych: appropriate mood and affect. Discharge Plan Plan Patient Disposition: HOME (Self Care) Patient condition on transfer: Stable Prescriptions/Referrals Prescriptions/Med Rec: New ciprofloxacin HCl 500 mg tablet 500 mg PO BID 10 Days Qty: 20 0RF metronidazole 500 mg tablet 500 mg PO Q8H 10 Days Qty: 30 0RF ondansetron 4 mg tablet,disintegrating 4 mg PO Q8H PRN (Reason: nausea and vomiting) 10 Days Qty: 20 0RF Continued tamsulosin 0.4 mg capsule 0.4 mg PO QHS lisinopril 20 mg tablet 20 mg PO BID Patient Comments: TAKE 1 TABLET BY MOUTH TWICE A DAY amlodipine 5 mg tablet 5 mg PO BID Patient Comments: TAKE 1 TABLET BY MOUTH TWICE A DAY FOR 90 DAYS Eliquis 5 mg tablet 5 mg PO Q12H Patient Comments: TAKE 1 TABLET BY MOUTH TWICE A DAY atenolol 50 mg tablet 50 mg PO BID Discontinued ticagrelor [Brilinta] 90 mg tablet 90 mg PO BID Patient Comments: TAKE 1 TABLET BY MOUTH TWICE A DAY [id number] [Phenohytro] 16.2-0.1037 -0.0194 mg tablet 1 tab PO BID PRN (Reason: gastrointestinal spasms or cramping) hyoscyamine 0.15 mg tablet 0.125 mg PO Q6HR PRN (Reason: gastrointestinal spasms or cramping) Referrals: Marilee Chacon MD [Physician] - Janey Figueroa MD [Primary Care Provider] - Patient/Caregiver Discharge Instructions Discharge Activity: activity as tolerated Other Discharge Activity Instructions:: Continue low fiber diet, maintain adequate hydration. Continue antibiotics for 10 days as prescribed. Resumed Eliquis as prescribed. Follow-up with primary care physician in 1 week. Recommend follow up with Gastroenterology for colonoscopy in 6-8 weeks. Follow-up with torch shearer in the next 4 weeks. Return to ED if symptoms return or worsen. Other Discharge Diet Instructions: Low fiber diet. Education Materials: Low-Fiber Diet, Diverticulosis Diverticulitis Print Language: Citizen Of [place] Stand Alone Forms: Jennifer Award Info., Patient Portal Info Letter Discharge Order Discharge Orders: Discharge (Routine); Ordered 01/29/25 Ordered By: Kin Mcnair Quality Discharge Quality Measures VTE prophylaxis
== END 2025-01-29 12:22 | disposition home or self-care (01) | DRG 379 ==
LOC: SERX 01-24 02:53 → SERHOLD 01-24 03:30 → S3NX 01-24 15:34 → S2NX 01-25 00:02
PROVIDERS: Internal Medicine Cardiovascular Disease; Student in an Organized Health Care Education/Training Program; Admitting Provider Student in an Organized Health Care Education/Training Program; Emergency Provider Emergency Medicine; PCP Family Medicine; Visit Provider Internal Medicine
DX: K57.21 Diverticulitis of large intestine with perforation and abscess with bleeding (principal); I12.9 Hypertensive chronic kidney disease with stage 1 through stage 4 chronic kidney disease, or unspecified chronic kidney disease; N18.30 Chronic kidney disease, stage 3 unspecified; N40.0 Benign prostatic hyperplasia without lower urinary tract symptoms; Z95.5 Presence of coronary angioplasty implant and graft; I08.0 Rheumatic disorders of both mitral and aortic valves; I45.10 Unspecified right bundle-branch block; I25.10 Atherosclerotic heart disease of native coronary artery without angina pectoris; I73.9 Peripheral vascular disease, unspecified; Z79.82 Long term (current) use of aspirin; E78.00 Pure hypercholesterolemia, unspecified; Z79.01 Long term (current) use of anticoagulants; Z79.899 Other long term (current) drug therapy; Z87.891 Personal history of nicotine dependence; Z88.5 Allergy status to narcotic agent; Z88.8 Allergy status to other drugs, medicaments and biological substances
CPT/HCPCS: 36415; 71045; 71260; 74177; 80053; 80061; 81001; 82150; 82248; 82270; 82803; 83605; 83690; 83735; 83880; 84100; 84145; 84439; 84443; 84484; 85025; 85610; 85652; 85730; 86140; 87040; 87400; 87634; 87651; 87811; 93005; 93225; 93306; 96361; 96365; 96366; 96367; 96368; 96374; 96375; 99291; A4649; J0131; J0360; J0692; J0696; J1644; J2405; J2470; J2543; J3490; J7030; J7050; Q9967; A9270; J1836; J1920

== ENCOUNTER → 2025-02-17 | Outpatient (CLI) | payer MEDICARE, SELFPAY ==
[2025-02-17 09:55] LABS: Basophils # (Auto) 0.0 Thou/mm3 (0.0-0.2); Basophils % (Auto) 1 % (0-2.5); Eosinophils # (Auto) 0.1 Thou/mm3 (0.0-0.5); Eosinophils % (Auto) 2 % (0-10); Hematocrit 27.0 % (41.0-53.0); Hemoglobin 8.9 g/dL (13.5-16.0); Immature Granulocytes Auto 0.01 Thou/mm3 (0.00-0.00); Lymphocytes # (Auto) 1.4 Thou/mm3 (1.0-4.8); Lymphocytes % (Auto) 29 % (10-50); Mean Corpuscular HGB Conc 33.0 g/dl (31.0-37.0); Mean Corpuscular Hemoglobin 27.4 pg (25.0-35.0); Mean Corpuscular Volume 83 fL (80-100); Monocytes # (Auto) 0.6 Thou/mm3 (0.0-0.8); Monocytes % (Auto) 13 % (0-12); Neutrophils # (Auto) 2.7 Thou/mm3 (1.8-7.7); Neutrophils % (Auto) 55 % (37-80); Nucleated Red Blood Cell # 0.00 Thou/mm3 (0.00-0.00); Nucleated Red Blood Cell % 0 /100 WBC (0); Platelet Count 178 Thou/mm3 (140-440); RDW Standard Deviation 40.7 fL (35.1-43.9); Red Blood Count 3.25 Miln/mm3 (4.50-5.90); White Blood Count 4.9 Thou/mm3 (3.8-10.6)
== END | disposition home or self-care (01) ==
LOC: COPL 09:30
PROVIDERS: PCP Family Medicine; Referring Provider Family Medicine; Visit Provider Family Medicine
DX: K65.0 Generalized (acute) peritonitis (principal)
CPT/HCPCS: 36415; 85025

== ENCOUNTER → 2025-03-03 | Outpatient (CLI) | payer MEDICARE, SELFPAY ==
[2025-03-03] VITALS (10 sets, daily range): BP systolic 126–170; BP diastolic 41–64; PULSE 58–69; RESP 14–16; TEMP 36.3–36.8; O2SAT 97–99; BMI 22.7
== END | disposition home or self-care (01) ==
LOC: SFLEX 05:44
PROVIDERS: PCP Family Medicine; Referring Provider Family Medicine; Visit Provider Family Medicine
PROC: (CPT 36430; principal; 2025-03-03 06:00)
DX: D64.9 Anemia, unspecified (principal)
CPT/HCPCS: 36415; 36430; 86850; 86900; 86901; 86923; P9016

== ENCOUNTER → 2025-03-09 | Outpatient (CLI) | payer MEDICARE, SELFPAY ==
[2025-03-09 17:40] LABS: Basophils # (Auto) 0.0 Thou/mm3 (0.0-0.2); Basophils % (Auto) 1 % (0-2.5); Eosinophils # (Auto) 0.2 Thou/mm3 (0.0-0.5); Eosinophils % (Auto) 3 % (0-10); Hematocrit 33.5 % (41.0-53.0); Hemoglobin 10.7 g/dL (13.5-16.0); Immature Granulocytes Auto 0.02 Thou/mm3 (0.00-0.00); Immature Reticulocyte Fraction 13.2 % (2.3-13.4); Lymphocytes # (Auto) 2.2 Thou/mm3 (1.0-4.8); Lymphocytes % (Auto) 33 % (10-50); Mean Corpuscular HGB Conc 31.9 g/dl (31.0-37.0); Mean Corpuscular Hemoglobin 27.2 pg (25.0-35.0); Mean Corpuscular Volume 85 fL (80-100); Monocytes # (Auto) 0.6 Thou/mm3 (0.0-0.8); Monocytes % (Auto) 9 % (0-12); Neutrophils # (Auto) 3.7 Thou/mm3 (1.8-7.7); Neutrophils % (Auto) 55 % (37-80); Nucleated Red Blood Cell # 0.00 Thou/mm3 (0.00-0.00); Nucleated Red Blood Cell % 0 /100 WBC (0); Platelet Count 171 Thou/mm3 (140-440); RDW Standard Deviation 44.4 fL (35.1-43.9); Red Blood Count 3.93 Miln/mm3 (4.50-5.90); Reticulocyte % (Auto) 1.7 % (0.5-1.5); Reticulocyte Absolute Auto 66.0 Biln/L (25.0-75.0); Reticulocyte Hgb Content 25.2 pg (28.0-35.0); White Blood Count 6.7 Thou/mm3 (3.8-10.6)
[2025-03-09 17:55] LABS: Thyroid Stimulating Hormone 2.47 uIU/mL (0.55-4.78)
[2025-03-09 18:01] LABS: Path Review Blood Smear Sent to Pathologist
[2025-03-09 20:44] LABS: Vitamin B12 472 pg/mL (211-911)
[2025-03-09 20:48] LABS: Ferritin 8 ng/mL (10.5-307.3); Iron 20 mcg/dL (65-175); Percent Iron Saturation 5 % (20-55); Total Iron Binding Capacity 398 mcg/dL (250-425); Unsaturated Iron Binding 378 (225-295)
== END | disposition home or self-care (01) ==
LOC: COPL 16:40
PROVIDERS: PCP Family Medicine; Referring Provider Specialist; Visit Provider Specialist
DX: D50.0 Iron deficiency anemia secondary to blood loss (chronic) (principal)
CPT/HCPCS: 36415; 82607; 82728; 83540; 83550; 84443; 85025; 85046

== ENCOUNTER → 2025-03-30 | Outpatient (CLI) | payer MEDICARE, SELFPAY ==
[2025-03-30 09:54] LABS: Misc Send Out* See Sep Rpt
[2025-03-30 10:50] LABS: Basophils # (Auto) 0.0 Thou/mm3 (0.0-0.2); Basophils % (Auto) 1 % (0-2.5); Eosinophils # (Auto) 0.1 Thou/mm3 (0.0-0.5); Eosinophils % (Auto) 3 % (0-10); Hematocrit 30.0 % (41.0-53.0); Hemoglobin 9.3 g/dL (13.5-16.0); Immature Granulocytes Auto 0.01 Thou/mm3 (0.00-0.00); Lymphocytes # (Auto) 1.6 Thou/mm3 (1.0-4.8); Lymphocytes % (Auto) 29 % (10-50); Mean Corpuscular HGB Conc 31.0 g/dl (31.0-37.0); Mean Corpuscular Hemoglobin 25.9 pg (25.0-35.0); Mean Corpuscular Volume 84 fL (80-100); Monocytes # (Auto) 0.6 Thou/mm3 (0.0-0.8); Monocytes % (Auto) 11 % (0-12); Neutrophils # (Auto) 3.1 Thou/mm3 (1.8-7.7); Neutrophils % (Auto) 57 % (37-80); Nucleated Red Blood Cell # 0.00 Thou/mm3 (0.00-0.00); Nucleated Red Blood Cell % 0 /100 WBC (0); Platelet Count 154 Thou/mm3 (140-440); RDW Standard Deviation 47.7 fL (35.1-43.9); Red Blood Count 3.59 Miln/mm3 (4.50-5.90); White Blood Count 5.5 Thou/mm3 (3.8-10.6)
[2025-03-30 11:07] LABS: Albumin, Serum 4.1 gm/dL (3.4-4.8); Anion Gap 6 (7-16); BUN/Creatinine Ratio 16 Ratio (12-20); Blood Urea Nitrogen 19 mg/dL (9-23); Calcium 8.8 mg/dL (8.3-10.6); Calcium (Corrected) 8.8 mg/dL (8.5-10.1); Carbon Dioxide 26.6 mMol/L (20.0-31.0); Chloride 109 mMol/L (98-107); Creatinine (Component) 1.2 mg/dL (0.6-1.3); Glucose 130 mg/dL (74-106); Osmolality,Calculated 287 (275-295); Phosphorous 3.4 mg/dL (2.4-5.1); Potassium 4.5 mMol/L (3.4-5.1); Sodium 142 mMol/L (136-145); eGFR > 60 See Note
[2025-03-30 11:08] LABS: Ferritin 6 ng/mL (10.5-307.3); Iron 21 mcg/dL (65-175); Total Iron Binding Capacity 382 mcg/dL (250-425)
== END | disposition home or self-care (01) ==
LOC: COPL 09:23
PROVIDERS: PCP Family Medicine; Referring Provider Internal Medicine; Visit Provider Internal Medicine
DX: I12.9 Hypertensive chronic kidney disease with stage 1 through stage 4 chronic kidney disease, or unspecified chronic kidney disease (principal); N18.2 Chronic kidney disease, stage 2 (mild); K51.00 Ulcerative (chronic) pancolitis without complications; K51.90 Ulcerative colitis, unspecified, without complications
CPT/HCPCS: 36415; 80069; 82728; 83540; 83550; 84466; 85025

== ENCOUNTER 2025-04-15 09:07 | Outpatient (RCR) | payer MEDICARE, SELFPAY ==
[2025-04-08 09:55] VITALS: BP 146/48; PULSE 50; RESP 18; TEMP 36.6; O2SAT 98; BMI 23.3
[2025-04-08] MEDS: FERRIC SOD GLUC INJ 125 MG in SODIUM CHLORIDE 0.9% 100 ML 110 MG IV (10:33)
[2025-04-08 11:35] VITALS: BP 148/48; PULSE 55; RESP 18; TEMP 36.2; O2SAT 97
[2025-04-15 09:20] VITALS: BP 130/49; PULSE 50; RESP 16; TEMP 36.1; O2SAT 98; BMI 23.3
[2025-04-15] MEDS: FERRIC SOD GLUC INJ 125 MG in SODIUM CHLORIDE 0.9% 100 ML 110 MG IV (09:50)
[2025-04-15 10:53] VITALS: BP 125/47; PULSE 53; RESP 18; TEMP 36.4; O2SAT 97
== END 2025-04-19 23:59 | disposition home or self-care (01) ==
LOC: SFLEX 09:07
PROVIDERS: PCP Family Medicine; Referring Provider Specialist; Visit Provider Specialist
PROC: (CPT 96365; principal; 2025-04-08 10:45)
DX: D50.0 Iron deficiency anemia secondary to blood loss (chronic) (principal)
CPT/HCPCS: 96365; 96366; J2916; J7050

== ENCOUNTER → 2025-04-27 | Outpatient (CLI) | payer MEDICARE, SELFPAY ==
[2025-04-27 17:29] LABS: Basophils # (Auto) 0.0 Thou/mm3 (0.0-0.2); Basophils % (Auto) 1 % (0-2.5); Eosinophils # (Auto) 0.1 Thou/mm3 (0.0-0.5); Eosinophils % (Auto) 2 % (0-10); Hematocrit 35.0 % (41.0-53.0); Hemoglobin 10.9 g/dL (13.5-16.0); Immature Granulocytes Auto 0.02 Thou/mm3 (0.00-0.00); Lymphocytes # (Auto) 1.9 Thou/mm3 (1.0-4.8); Lymphocytes % (Auto) 31 % (10-50); Mean Corpuscular HGB Conc 31.1 g/dl (31.0-37.0); Mean Corpuscular Hemoglobin 25.7 pg (25.0-35.0); Mean Corpuscular Volume 83 fL (80-100); Monocytes # (Auto) 0.5 Thou/mm3 (0.0-0.8); Monocytes % (Auto) 9 % (0-12); Neutrophils # (Auto) 3.6 Thou/mm3 (1.8-7.7); Neutrophils % (Auto) 58 % (37-80); Nucleated Red Blood Cell # 0.00 Thou/mm3 (0.00-0.00); Nucleated Red Blood Cell % 0 /100 WBC (0); Platelet Count 158 Thou/mm3 (140-440); RDW Standard Deviation 55.2 fL (35.1-43.9); Red Blood Count 4.24 Miln/mm3 (4.50-5.90); White Blood Count 6.2 Thou/mm3 (3.8-10.6)
[2025-04-27 17:40] LABS: Alanine Aminotransferase 10 U/L (10-49); Albumin, Serum 4.6 gm/dL (3.4-4.8); Albumin/Globulin Ratio 2.1 (1.2-2.2); Alkaline Phosphatase 85 U/L (46-116); Anion Gap 10 (7-16); Aspartate Amino Transferase 17 U/L (0-34); BUN/Creatinine Ratio 17 Ratio (12-20); Bilirubin,Total 0.5 mg/dL (0.3-1.2); Blood Urea Nitrogen 20 mg/dL (9-23); Calcium 9.2 mg/dL (8.3-10.6); Calcium (Corrected) 9.2 mg/dL (8.5-10.1); Carbon Dioxide 26.3 mMol/L (20.0-31.0); Chloride 105 mMol/L (98-107); Creatinine (Component) 1.2 mg/dL (0.6-1.3); Globulin 2.2 gm/dL (2.3-3.5); Glucose 112 mg/dL (74-106); Osmolality,Calculated 284 (275-295); Potassium 4.4 mMol/L (3.4-5.1); Sodium 141 mMol/L (136-145); Total Protein 6.8 gm/dL (5.7-8.2); eGFR > 60 See Note
[2025-04-27 17:52] LABS: Ferritin 34 ng/mL (10.5-307.3); Iron 51 mcg/dL (65-175); Percent Iron Saturation 12 % (20-55); Total Iron Binding Capacity 423 mcg/dL (250-425); Unsaturated Iron Binding 372 (225-295)
[2025-04-27 17:56] LABS: Sed Rate (ESR) 5 mm/hr (0-20)
== END | disposition home or self-care (01) ==
LOC: COPL 16:45
PROVIDERS: PCP Family Medicine; Referring Provider Family Medicine; Visit Provider Family Medicine
DX: D50.0 Iron deficiency anemia secondary to blood loss (chronic) (principal)
CPT/HCPCS: 36415; 80053; 82728; 83540; 83550; 85025; 85652

== ENCOUNTER → 2025-06-02 | Outpatient (CLI) | payer MEDICARE, SELFPAY ==
[2025-06-02 09:45] LABS: Blood Urea Nitrogen 17 mg/dL (9-23); Creatinine (Component) 1.2 mg/dL (0.6-1.3); eGFR > 60 See Note
== END | disposition home or self-care (01) ==
PROVIDERS: PCP Family Medicine; Referring Provider Nurse Practitioner; Visit Provider Nurse Practitioner
DX: I70.0 Atherosclerosis of aorta (principal)
CPT/HCPCS: 36415; 82565; 84520

== ENCOUNTER → 2025-06-10 | Outpatient (CLI) | payer MEDICARE, SELFPAY ==
--- NOTE | 2025-06-10 13:00 | XR_ITS ---
Examination: CTA abdominal aorta iliofemoral runoff. 2-D sagittal coronal reconstructions. 3-D reconstructions, vascular June 10, 2025, 1421 hours INDICATIONS: Diagnosis atherosclerosis of [place] arteries lower extremity Technique: Multiple CTA images of the abdominal aorta iliofemoral runoff arterial vessels, 2.0 mm slice thickness, post intravenous administration 130 cc [id number] 2-D sagittal coronal reconstructions. 3-D reconstructions, vascular 3-D postprocessing, including vascular maximum intensity projection images, 3-D volume rendering Low dose protocols were performed. One or more of the following dose reduction techniques were used; automated exposure control, adjustment of the mA and/or KV according to patient size, use of iterative reconstruction technique. Findings: No focal liver or splenic lesions No pancreatic mass Atrophic right kidney, no hydronephrosis Mild small bowel ileus No obstruction No colitis or diverticulitis Bladder intact Heavy abdominal aortic calcification Celiac axis stent is not opacified in a 10 mm proximal portion axial image 50 Superior mesenteric artery stent is minimally opacified in the proximal 15 mm image 59 Severe calcification and narrowing of the abdominal aorta at the level of the renal artery origins with patent stents bilaterally 60% narrowing distalmost abdominal aorta axial image 103 Common iliac and external iliac arteries are patent Right presumed axillary opacified stent inserting into the right common femoral artery Short segment severe stenosis versus occlusion proximal right superficial femoral artery, image 270 over a distance of at least 10 mm Right popliteal artery does fill Severely attenuated posterior tibial artery in its mid and distal portions but opacification Dorsalis pedis artery fills on the right The graft extending from the right common femoral artery to the left common femoral artery does not appear opacified Left superficial femoral artery is opacified without critical stenoses Popliteal artery trifurcation arteries on the left fill, with no occlusions, filling of the dorsalis pedis artery IMPRESSION: Celiac axis stent is not opacified in the 10 mm proximal portion Superior mesenteric artery stent is minimally opacified in the proximal 15 mm Severe calcification of the abdominal aorta at the level of renal artery stents 60% narrowing distalmost abdominal aorta Opacified right presumed axillary graft inserts into the right common femoral artery Severe short segment stenosis versus occlusion proximal right superficial femoral artery Severely attenuated right posterior tibial artery in its mid and distal portion.
== END | disposition home or self-care (01) ==
PROVIDERS: PCP Family Medicine; Referring Provider Nurse Practitioner; Visit Provider Nurse Practitioner
DX: I77.89 Other specified disorders of arteries and arterioles (principal); I70.0 Atherosclerosis of aorta; I77.1 Stricture of artery
CPT/HCPCS: 75635; A4649; Q9967

== ENCOUNTER → 2025-06-25 | Outpatient (CLI) | payer MEDICARE, SELFPAY ==
[2025-06-25 10:52] LABS: Basophils # (Auto) 0.0 Thou/mm3 (0.0-0.2); Basophils % (Auto) 1 % (0-2.5); Eosinophils # (Auto) 0.1 Thou/mm3 (0.0-0.5); Eosinophils % (Auto) 3 % (0-10); Hematocrit 39.8 % (41.0-53.0); Hemoglobin 12.9 g/dL (13.5-16.0); Immature Granulocytes Auto 0.02 Thou/mm3 (0.00-0.00); Lymphocytes # (Auto) 1.5 Thou/mm3 (1.0-4.8); Lymphocytes % (Auto) 31 % (10-50); Mean Corpuscular HGB Conc 32.4 g/dl (31.0-37.0); Mean Corpuscular Hemoglobin 27.6 pg (25.0-35.0); Mean Corpuscular Volume 85 fL (80-100); Monocytes # (Auto) 0.5 Thou/mm3 (0.0-0.8); Monocytes % (Auto) 10 % (0-12); Neutrophils # (Auto) 2.7 Thou/mm3 (1.8-7.7); Neutrophils % (Auto) 56 % (37-80); Nucleated Red Blood Cell # 0.00 Thou/mm3 (0.00-0.00); Nucleated Red Blood Cell % 0 /100 WBC (0); Platelet Count 112 Thou/mm3 (140-440); RDW Standard Deviation 64.5 fL (35.1-43.9); Red Blood Count 4.68 Miln/mm3 (4.50-5.90); White Blood Count 4.9 Thou/mm3 (3.8-10.6)
[2025-06-25 10:53] LABS: INR 1.0 (0.9-1.3); Partial Thromboplastin Time 30.8 Seconds (22.0-36.0); Prothrombin Time 11.1 Seconds (9.0-12.2)
[2025-06-25 11:01] LABS: Alanine Aminotransferase 15 U/L (10-49); Albumin, Serum 4.3 gm/dL (3.4-4.8); Albumin/Globulin Ratio 2.0 (1.2-2.2); Alkaline Phosphatase 74 U/L (46-116); Anion Gap 6 (7-16); Aspartate Amino Transferase 16 U/L (0-34); BUN/Creatinine Ratio 12 Ratio (12-20); Bilirubin,Total 0.4 mg/dL (0.3-1.2); Blood Urea Nitrogen 13 mg/dL (9-23); Calcium 9.0 mg/dL (8.3-10.6); Calcium (Corrected) 9.0 mg/dL (8.5-10.1); Carbon Dioxide 28.8 mMol/L (20.0-31.0); Chloride 108 mMol/L (98-107); Creatinine (Component) 1.1 mg/dL (0.6-1.3); Globulin 2.1 gm/dL (2.3-3.5); Glucose 118 mg/dL (74-106); Osmolality,Calculated 286 (275-295); Potassium 4.2 mMol/L (3.4-5.1); Sodium 143 mMol/L (136-145); Total Protein 6.4 gm/dL (5.7-8.2); eGFR > 60 See Note
== END | disposition home or self-care (01) ==
LOC: COPL 08:42
PROVIDERS: PCP Family Medicine; Referring Provider Physician Assistant; Visit Provider Physician Assistant
DX: Z01.818 Encounter for other preprocedural examination (principal)
CPT/HCPCS: 36415; 80053; 85025; 85610; 85730

== ENCOUNTER → 2025-07-27 | Outpatient (CLI) | payer MEDICARE, SELFPAY ==
[2025-07-27 18:18] LABS: Basophils # (Auto) 0.0 Thou/mm3 (0.0-0.2); Basophils % (Auto) 1 % (0-2.5); Eosinophils # (Auto) 0.1 Thou/mm3 (0.0-0.5); Eosinophils % (Auto) 2 % (0-10); Hematocrit 41.1 % (41.0-53.0); Hemoglobin 13.8 g/dL (13.5-16.0); Immature Granulocytes Auto 0.03 Thou/mm3 (0.00-0.00); Lymphocytes # (Auto) 2.1 Thou/mm3 (1.0-4.8); Lymphocytes % (Auto) 32 % (10-50); Mean Corpuscular HGB Conc 33.6 g/dl (31.0-37.0); Mean Corpuscular Hemoglobin 28.9 pg (25.0-35.0); Mean Corpuscular Volume 86 fL (80-100); Monocytes # (Auto) 0.7 Thou/mm3 (0.0-0.8); Monocytes % (Auto) 10 % (0-12); Neutrophils # (Auto) 3.7 Thou/mm3 (1.8-7.7); Neutrophils % (Auto) 55 % (37-80); Nucleated Red Blood Cell # 0.00 Thou/mm3 (0.00-0.00); Nucleated Red Blood Cell % 0 /100 WBC (0); Platelet Count 140 Thou/mm3 (140-440); RDW Standard Deviation 57.9 fL (35.1-43.9); Red Blood Count 4.78 Miln/mm3 (4.50-5.90); White Blood Count 6.7 Thou/mm3 (3.8-10.6)
[2025-07-27 21:01] LABS: Ferritin 224 ng/mL (10.5-307.3); Iron 110 mcg/dL (65-175); Percent Iron Saturation 33 % (20-55); Total Iron Binding Capacity 324 mcg/dL (250-425); Unsaturated Iron Binding 214 (225-295)
== END | disposition home or self-care (01) ==
LOC: COPL 16:05
PROVIDERS: PCP Family Medicine; Referring Provider Internal Medicine Hematology & Oncology; Visit Provider Internal Medicine Hematology & Oncology
DX: D50.0 Iron deficiency anemia secondary to blood loss (chronic) (principal)
CPT/HCPCS: 36415; 82728; 83540; 83550; 85025